=== PATIENT | female | born 1960 ===

== ENCOUNTER 2017-05-24 09:49 | Emergency (ER) | payer OTHER ==
[2017-05-24 09:59] VITALS: RESP 20
--- NOTE | 2017-05-24 12:01 | ED PDOC ---
HPI: General Adult Time Seen by Provider: 05/24/17 10:24 Chief Complaint (Nursing): Back Pain History Per: Patient Additional Complaint(s): Pt. states 2 weeks ago she was attempting to walk without her cane and when she stepped off a curb she fell backwards landing on the R side of her lower back and then flat on her back. She has been taking Naproxen without relief. Pt. states in December 2016 she had disc herniation repair done by Dr. Bean without complications. Pt. states she has been pain free since the surgery. Denies incontinence, abdominal pain, hip pain, head injury, numbness, tingling. Past Medical History Reviewed: Historical Data, Nursing Documentation, Vital Signs Vital Signs: Last Vital Signs Temp 98.6 F 05/24/17 09:58 Pulse 77 05/24/17 09:58 Resp 20 05/24/17 09:58 BP 157/91 H 05/24/17 09:58 Pulse Ox 100 05/24/17 13:08 - Medical History PMH: Diabetes, HTN, Hypercholesterolemia, Hypothyroidism - Surgical History Surgical History: Cholecystectomy - Family History Family History: States: Unknown Family Hx, Diabetes, Hypertension - Home Medications Home Medications: Ambulatory Orders Medication Instructions Recorded Aspirin [Ecotrin] 81 mg PO DAILY 01/13/17 Atorvastatin [Lipitor] 20 mg PO DAILY 01/13/17 Canagliflozin/Metformin HCl 1 tab PO BID 01/13/17 [Invokamet 150-1,000 mg Tablet] Cyanocobalamin [Vitamin B12] 500 mcg PO DAILY 01/13/17 Dulaglutide [Trulicity] 1.5 mg SQ MO 01/13/17 Ergocalciferol (Vitamin D2) 50,000 unit PO MO 01/13/17 [Vitamin D2] Glipizide [Glipizide ER] 5 mg PO DAILY 01/13/17 Levothyroxine [Synthroid] 150 mcg PO DAILY 01/13/17 Lisinopril [Zestril] 40 mg PO DAILY 01/13/17 Metoprolol Tartrate [Lopressor] 100 mg PO BID 01/13/17 Naproxen [Naprosyn] 500 mg PO DAILY PRN 01/13/17 Pioglitazone [Actos] 45 mg PO DAILY 01/13/17 Sennosides A and B [Senokot Tab] 17.2 mg PO HS tab 01/22/17 Tramadol HCl [Ultram] 50 mg PO BID PRN #10 tablet 05/24/17 - Allergies Allergies/Adverse Reactions: Allergies Allergy/AdvReac Type Severity Reaction Status Date / Time No Known Allergies Allergy Verified 01/13/17 06:59 Review of Systems ROS Statement: Except As Marked, All Systems Reviewed And Found Negative Musculoskeletal: Positive for: Back Pain Physical Exam - Physical Exam Appears: Positive for: Well, In Acute Distress (moderate painful distress) Head Exam: Positive for: ATRAUMATIC, NORMAL INSPECTION, NORMOCEPHALIC Skin: Positive for: Normal Color, Warm. Negative for: Rash Gastrointestinal/Abdominal: Positive for: Normal Exam, Soft. Negative for: Tenderness Back: Positive for: Normal Inspection, Vertebral Tenderness (coccygeal tenderness), Decreased ROM, Muscle Spasm (R sided paralumbar tenderness). Negative for: L CVA Tenderness, R CVA Tenderness Extremity: Positive for: Normal ROM Neurologic/Psych: Positive for: Alert, Oriented. Negative for: Aphasia, Facial Droop - Laboratory Results Urine dip results: Negative for: Leukocyte Esterase, Blood, Nitrate, Ketones, Glucose, Bilirubin, Protein - ECG O2 Sat by Pulse Oximetry: 100 - Progress ED Course And Treament: Toradol 15mg IM, valium 10mg PO given. LS spine CT w/o contrast: Nondisplaced fracture through the anterior posterior aspect of S5 vertebra. Postoperative changes at L4 and L5 as above. Disc bulge L4 and L5 with possible midline disc herniation L5. Pt. searched on [place] [employer] which indicate 1 narcotic Rx on 02/16/17 for Percocet. Pt. adamantly refuses Percocet Rx and would like a less strong pain medication. Ultram Rx will be prescribed. Pt. given donut pillpete. Case d/w Dr. Enriquez and Dr. Bean who both agree with plan. Dr. Bean requests that pt. f/u in his office. Re-evaluation Time: 13:03 Condition: Re-examined, Improved Disposition - Clinical Impression Clinical Impression: Sacral fracture - Patient ED Disposition Is Patient to be Admitted: No - Disposition Referrals: Papo Bean MD [Staff Provider] - Disposition: Routine/Home Disposition Time: 13:06 Condition: IMPROVED Prescriptions: Tramadol HCl [Ultram] 50 mg PO BID PRN #10 tablet PRN Reason: Other Instructions: Sacral Fracture (ED)
--- NOTE | 2017-05-24 12:19 | CT ---
PROCEDURE: CT Lumbar Spine without contrast HISTORY: s/p fall, hx of disc repair, please include coccyx COMPARISON: None. TECHNIQUE: Axial computed tomography images were obtained of the lumbar spine without the use of intravenous contrast. Coronal and sagittal reformatted images were created and reviewed. Radiation dose: Total exam DLP = 1618.89 mGy-cm. This CT exam was performed using one or more of the following dose reduction techniques: Automated exposure control, adjustment of the mA and/or kV according to patient size, and/or use of iterative reconstruction technique. FINDINGS: VERTEBRAE: There is a nondisplaced transverse fracture through the S5 vertebra in the midline extending to the left side, involving the anterior and posterior aspect of the neural foramen. This is best demonstrated on sagittal 34 through 36. There is no other fracture identified. . The vertebral bodies are maintained in height. The patient is status post right L4 hemilaminectomy possibly involving the inferior portion of the left L4 lamina as well as left L5 hemilaminectomy. DISCS/SPINAL CANAL/NEURAL FORAMINA: L1-2: Unremarkable. L2-3: Unremarkable. L3-4: Unremarkable. L4-5: Diffuse disc bulge. Disc/ridge complex. Hypertrophied left ligamentum flavum. Small vacuum disc phenomenon. L5-S1: Diffuse disc bulge. Possible small midline disc herniation. Calcification of herniated midline disc material. There is soft tissue density seen within the left L5 laminotomy defect, extending anteriorly adjacent to the bulged disc as well as posteriorly through the defect into the paraspinous soft tissues. Likely postoperative scar. PARASPINAL SOFT TISSUES: As above OTHER FINDINGS: None. IMPRESSION: Nondisplaced fracture through the anterior posterior aspect of S5 vertebra. Postoperative changes at L4 and L5 as above. Disc bulge L4 and L5 with possible midline disc herniation L5.
[2017-05-24 13:47] VITALS: BP 128/78; PULSE 78; TEMP 97.6; O2SAT 98
== END 2017-05-24 13:47 | disposition home or self-care (01) ==
LOC: H.ER 09:49
DX: S32.009A Unspecified fracture of unspecified lumbar vertebra, initial encounter for closed fracture (principal); E11.9 Type 2 diabetes mellitus without complications; I10 Essential (primary) hypertension; Z79.82 Long term (current) use of aspirin

== ENCOUNTER 2017-07-12 10:13 | Emergency (ER) | payer OTHER ==
[2017-07-12] MEDS ORDERED: Piperacillin/Tazobact 3.375 GM in Sodium Chloride 0.9% 100 ML IV STA (11:04)
--- NOTE | 2017-07-12 11:07 | ED PDOC ---
HPI: Back Time Seen by Provider: 07/12/17 10:20 Chief Complaint (Nursing): Back Pain Chief Complaint (Provider): Back Pain History Per: Patient Additional Complaint(s): 57 yo female, PMH of DM. HTN, high Cholesterol, Hypothyroidism, presents to ED for evaluation of painful, red, swollen, progressively worsening mass to mid back x 1 week now. Pt reports similar episode occurred 2 years ago, in the same spot, and I&D was done. Past Medical History Reviewed: Nursing Documentation, Vital Signs - Medical History PMH: Diabetes, HTN, Hypercholesterolemia, Hypothyroidism - Surgical History Surgical History: Cholecystectomy - Family History Family History: States: Unknown Family Hx, Diabetes, Hypertension - Living Arrangements Living Arrangements: With Family - Social History Current smoker - smoking cessation education provided: No Alcohol: None Drugs: Denies - Home Medications Home Medications: Ambulatory Orders Medication Instructions Recorded Aspirin [Ecotrin] 81 mg PO DAILY 01/13/17 Atorvastatin [Lipitor] 20 mg PO DAILY 01/13/17 Canagliflozin/Metformin HCl 1 tab PO BID 01/13/17 [Invokamet 150-1,000 mg Tablet] Cyanocobalamin [Vitamin B12] 500 mcg PO DAILY 01/13/17 Dulaglutide [Trulicity] 1.5 mg SQ MO 01/13/17 Ergocalciferol (Vitamin D2) 50,000 unit PO MO 01/13/17 [Vitamin D2] Glipizide [Glipizide ER] 5 mg PO DAILY 01/13/17 Levothyroxine [Synthroid] 150 mcg PO DAILY 01/13/17 Lisinopril [Zestril] 40 mg PO DAILY 01/13/17 Metoprolol Tartrate [Lopressor] 100 mg PO BID 01/13/17 Naproxen [Naprosyn] 500 mg PO DAILY PRN 01/13/17 Pioglitazone [Actos] 45 mg PO DAILY 01/13/17 Sennosides A and B [Senokot Tab] 17.2 mg PO HS tab 01/22/17 Tramadol HCl [Ultram] 50 mg PO BID PRN #10 tablet 05/24/17 Clindamycin [Cleocin] 300 mg PO BID #14 cap 07/12/17 Ibuprofen [Motrin] 600 mg PO Q6 #20 tab 07/12/17 oxyCODONE/Acetaminophen [Percocet 1 ea PO Q6 PRN #5 tab 07/12/17 5/325 mg Tab] - Allergies Allergies/Adverse Reactions: Allergies Allergy/AdvReac Type Severity Reaction Status Date / Time No Known Allergies Allergy Verified 01/13/17 06:59 Review of Systems ROS Statement: Except As Marked, All Systems Reviewed And Found Negative Skin: Positive for: Lesions Physical Exam - Reviewed Nursing Documentation Reviewed: Yes Vital Signs Reviewed: Yes - Physical Exam Appears: Positive for: Non-toxic, No Acute Distress, Uncomfortable Head Exam: Positive for: ATRAUMATIC, NORMAL INSPECTION, NORMOCEPHALIC Skin: Positive for: Normal Color, Warm, DRY Eye Exam: Positive for: EOMI, Normal appearance, PERRL ENT: Positive for: Normal ENT Inspection Neck: Positive for: Normal, Painless ROM Cardiovascular/Chest: Positive for: Regular Rate, Rhythm Respiratory: Positive for: CNT, Normal Breath Sounds Gastrointestinal/Abdominal: Positive for: Normal Exam, Bowel Sounds, Soft Back: Positive for: Normal Inspection Extremity: Positive for: Normal ROM Neurologic/Psych: Positive for: Alert, Oriented Comments: (+) tender, erythemtous, non fluctuant, iundurated mass to mid back ~ 10 cm in diameter - Laboratory Results Result Diagrams: 07/12/17 11:23 07/12/17 11:23 Medical Decision Making Medical Decision Making: IV access established and treatment initiated with Vanco, Zosyn and Morphine Diagnostics ordered including US to assess for fluid collection WBC 9.3 US IMPRESSION: Complex primarily solid mass subcutaneous location. More superficial cutaneous and subcutaneous edema. No drainable component of what is likely infectious/ inflammatory process. Pt educated on all results and demonstrated full understanding. Large blackhead removed by physician underwriter and foul smelling sebum drained as well. Site cleaned and dressed by physician underwriter Pt stable for discharge, advised to continue on oral antibitoics as directed. Warm compresses as well. wound check in 2 days. pt scheduled with [facility] as well. Disposition - Clinical Impression Clinical Impression: Sebaceous cyst - Patient ED Disposition Is Patient to be Admitted: No - Disposition Referrals: Juwan Beckett [Outside] Disposition: Routine/Home Disposition Time: 13:09 Condition: STABLE Prescriptions: Clindamycin [Cleocin] 300 mg PO BID #14 cap Ibuprofen [Motrin] 600 mg PO Q6 #20 tab oxyCODONE/Acetaminophen [Percocet 5/325 mg Tab] 1 ea PO Q6 PRN #5 tab PRN Reason: Pain, Severe (8-10) Instructions: Cyst (ED) Forms: [facility] (Icelandic)
[2017-07-12] MEDS ORDERED: Vancomycin 1 g Inj ONE (11:12)
[2017-07-12] MEDS ORDERED: Oxycodone/Acetaminophen 5/325 mg Tab PO STA ×2 (11:22→13:12)
[2017-07-12] MEDS ORDERED: Piperacillin/Tazobact 3.375 gm Inj IVPB ONE ×2 (11:30→13:24)
[2017-07-12 11:33] LABS: BASO # 0.1 K/uL (0.0-0.2); BASO % 0.5 % (0.0-2.0); EOS # 0.3 K/uL (0.0-0.7); EOS % 3.4 % (0.0-4.0); HEMOGLOBIN 13.2 g/dL (12.0-16.0); LYMPH # 1.3 K/uL (1.0-4.3); LYMPH % 14.1 % (20.0-40.0); MEAN CELL VOLUME 94.5 fl (81.0-99.0); MEAN CORPUSCULAR HEMOGLOBIN 31.8 pg (27.0-31.0); MEAN CORPUSCULAR HGB CONC 33.6 g/dL (33.0-37.0); MEAN PLATELET VOLUME 9.9 fl (7.2-11.7); MONO # 0.8 K/uL (0.0-0.8); MONO % 8.3 % (0.0-10.0); NEUT # 6.9 K/uL (1.8-7.0); NEUT % 73.7 % (50.0-75.0); RBC 4.14 Mil/uL (3.80-5.20); RED CELL DISTRIBUTION WIDTH 12.9 % (11.5-14.5); WHITE BLOOD COUNT 9.3 K/uL (4.8-10.8)
[2017-07-12 11:42] LABS: ALB/GLOB RATIO 1.1 (1.0-2.1); ALBUMIN 3.9 g/dL (3.5-5.0); ALT/SGPT 48 U/L (9-52); AST/SGOT 29 U/L (14-36); BLOOD UREA NITROGEN 18 mg/dl (7-17); GFR AFRICAN-AMERICAN > 60; GFR NON-AFRICAN AMERICAN > 60
--- NOTE | 2017-07-12 12:37 | US ---
PROCEDURE: Limited ultrasound attention right upper back HISTORY: . History of pain, swelling and redness 1 week duration. No antecedent history of trauma provided. COMPARISON: None. TECHNIQUE: Standard protocol for this study/examination. FINDINGS: Solid mass/complex fluid collection 2.1 x 3.1 by 3.2 cm. No drainable component. Associated cutaneous and subcutaneous edema. IMPRESSION: Complex primarily solid mass subcutaneous location. More superficial cutaneous and subcutaneous edema. No drainable component of what is likely infectious/inflammatory process.
[2017-07-12] MEDS ORDERED: Lidocaine 1% Inj (20ml) ONE (12:44)
[2017-07-12] MEDS ORDERED: Oxycodone/Acetaminophen 5/325 mg Tab ONE (12:52)
== END 2017-07-12 15:30 | disposition home or self-care (01) ==
LOC: H.ER 10:13
DX: L72.3 Sebaceous cyst (principal); I10 Essential (primary) hypertension; E03.9 Hypothyroidism, unspecified; E78.00 Pure hypercholesterolemia, unspecified; E11.9 Type 2 diabetes mellitus without complications

== ENCOUNTER 2017-08-03 12:49 | Inpatient (IN) | payer OTHER ==
--- NOTE | 2017-08-03 13:12 | ED PDOC ---
Arrival/HPI - General Chief Complaint: Weakness/Neurological Deficit Time Seen by Provider: 08/03/17 12:58 - History of Present Illness Narrative History of Present Illness (Text): Eileen Florian is a 57 year old female, with a past medical history of hypertension and diabetes, who presents to the emergency department complaining of double vision on the right eye associated with a headache onset for 1 week. 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 Patient denies any trauma, chest pain, neck pain, nausea, vomit, shortness of breath, and abdominal pain. No further medical complaints. PMD: Dr. Zoe Roberts: Dr. Marr Past Medical History - Provider Review Nursing Documentation Reviewed: Yes - Cardiac Hx Hypertension: Yes - Pulmonary Hx Respiratory Disorders: No - Neurological Hx Neurological Disorder: No - HEENT Hx HEENT Disorder: No - Endocrine/Metabolic Hx Hypothyroidism: Yes - Hematological/Oncological Hx Blood Disorders: No - Integumentary Hx Dermatological Disorder: No - Musculoskeletal/Rheumatological Hx Falls: No Hx Herniated Disk: Yes (herniated disc repair >20 yrs) - Psychiatric Hx Substance Use: No - Surgical History Hx Cholecystectomy: Yes - Anesthesia Hx Anesthesia: Yes Hx Anesthesia Reactions: No Hx Malignant Hyperthermia: No Family/Social History - Physician Review Nursing Documentation Reviewed: Yes Family/Social History: Unknown Family HX Smoking Status: Never Smoked Hx Alcohol Use: No Hx Substance Use: No Allergies/Home Meds Allergies/Adverse Reactions: Allergies No Known Allergies Allergy (Verified 08/03/17 12:58) Home Medications: Home Meds Medication Instructions Recorded Confirmed Aspirin [Ecotrin] 81 mg PO DAILY 08/03/17 08/03/17 Atorvastatin [Lipitor] 20 mg PO DAILY 08/03/17 08/03/17 Canagliflozin/Metformin HCl 1 tab PO BID 08/03/17 08/03/17 [Invokamet 150-1,000 mg Tablet] Cyanocobalamin [Vitamin B12] 500 mcg PO DAILY 08/03/17 08/03/17 Ergocalciferol (Vitamin D2) 50,000 unit PO MO 08/03/17 08/03/17 [Vitamin D2] Glipizide [Glipizide ER] 5 mg PO DAILY 08/03/17 08/03/17 Levothyroxine [Synthroid] 150 mcg PO DAILY 08/03/17 08/03/17 Lisinopril [Zestril] 40 mg PO DAILY 08/03/17 08/03/17 Metoprolol Tartrate [Lopressor] 100 mg PO Q12H 08/03/17 08/03/17 [place]-3 Fatty Acids/Fish Oil 1,000 mg PO BID 08/03/17 08/03/17 [[place]-3 1,000 mg Softgel] Review of Systems - Patients Enrolled in [employer] [X]: A conversation was conducted with the primary medical doctor. - Review of Systems Constitutional: Normal Eyes: Other (double vision on the right eye) ENT: Normal Respiratory: Normal. absent: SOB Cardiovascular: Normal. absent: Chest Pain Gastrointestinal: Normal. absent: Abdominal Pain, Nausea, Vomiting Genitourinary Female: Normal Musculoskeletal: Normal. absent: Neck Pain Skin: Normal Neurological: Headache Psychiatric: Normal Physical Exam Vital Signs Reviewed: Yes Vital Signs Temp Pulse Resp BP Pulse Ox 08/03/17 14:43 79 20 176/100 H 08/03/17 14:11 78 19 183/97 H 98 08/03/17 13:32 97.5 F L 83 19 170/100 H 98 08/03/17 13:11 99 H 19 188/105 H 99 08/03/17 12:58 98 F 99 H 18 204/107 H 98 Temperature: Afebrile Blood Pressure: Hypertensive Pulse: Regular Respiratory Rate: Normal Appearance: Positive for: Well-Appearing, Non-Toxic, Comfortable Pain Distress: None Mental Status: Positive for: Alert and Oriented X 3 - Systems Exam Head: Present: Atraumatic, Normocephalic Pupils: Present: PERRL, Other (Dilated eyes. Left eye within normal limits, right eye two fingers appear as 4) Extroacular Muscles: Present: EOMI Conjunctiva: Present: Normal Mouth: Present: Moist Mucous Membranes Pharnyx: Present: Normal Neck: Present: Normal Range of Motion Respiratory/Chest: Present: Clear to Auscultation, Good Air Exchange. No: Respiratory Distress, Accessory Muscle Use Cardiovascular: Present: Regular Rate and Rhythm, Normal S1, S2. No: Murmurs Abdomen: Present: Normal Bowel Sounds. No: Tenderness, Distention, Peritoneal Signs Upper Extremity: Present: Normal Inspection. No: Cyanosis, Edema Lower Extremity: Present: Normal Inspection. No: Edema Neurological: Present: GCS=15, CN II-XII Intact, Speech Normal Skin: Present: Warm, Dry, Normal Color. No: Rashes Psychiatric: Present: Alert, Oriented x 3, Normal Insight, Normal Concentration Medical Decision Making ED Course and Treatment: 08/03/17 13:38 Initial Impression: 57 y/o female with double vision on right eye concerning for mass vs. cva. Hypertensive on arrival. Initial Plan: --Type and screen --Head w/o contrast [CT] --EKG --Comp Metabolic Panel --Hemoglobin A1C --Lipid Panel --Troponin I --CBC w/ differential --PTT --PT --Chest Portable [RAD] --reevaluation Scribe Attestation: Documented by Marcos Donahue, acting as a scribe for Randa Gonsales MD. Provider Scribe Attestation: All medical record entries made by the Scribe were at my direction and personally dictated by me. I have reviewed the chart and agree that the record accurately reflects my personal performance of the history, physical exam, medical decision making, and the department course for this patient. I have also personally directed, reviewed, and agree with the discharge instructions and disposition. 08/03/17 13:50 EKG shows NSR at 83bpm with t wave inversions/flattening in v3-v6, new from prior ekg 08/03/17 14:17 CT shows No acute intracranial abnormality. If there is a persistent focal neurologic deficit and an ongoing clinical concern for acute infarction, an MRI of the brain without intravenous contrast would be a more sensitive modality for evaluation of hyperacute/acute ischemic infarction. Labetalol ordered for elevated BP. Aspirin ordered after CT head negative for hemorrhage. 08/03/17 14:18 Trop x 1 negative 08/03/17 14:40 Chest X-ray HISTORY: double vision COMPARISON: 01/20/2017. FINDINGS: LUNGS: The lungs are well inflated and clear. PLEURA: No significant pleural effusion identified, no pneumothorax apparent. CARDIOVASCULAR: Normal. OSSEOUS STRUCTURES: No significant abnormalities. VISUALIZED UPPER ABDOMEN: Normal. OTHER FINDINGS: None. IMPRESSION: No active pulmonary disease. 08/03/17 15:[address] Enriquez and patient to be admitted for hypertensive urgency with ekg changes and headache with neurologic changes concerning for cva. - Lab Interpretations Lab Results: 08/03/17 13:34 08/03/17 13:34 Lab Results 08/03/17 13:34: PT 10.4, INR 1.0, APTT 33.8 08/03/17 13:34: Sodium 139, Potassium 3.4 L, Chloride 103, Carbon Dioxide 26, Anion Gap 13, BUN 17, Creatinine 0.7, Est GFR ( Amer) > 60, Est GFR (Non- Af Amer) > 60, Random Glucose 225 H, Calcium 9.5, Total Bilirubin 1.5 H, AST 28 , ALT 29, Alkaline Phosphatase 116, Troponin I < 0.0120, Total Protein 7.5, Albumin 4.2, Globulin 3.3, Albumin/Globulin Ratio 1.3, Triglycerides 143, Cholesterol 232 H, LDL Cholesterol Direct 137 H, HDL Cholesterol 50 08/03/17 13:34: WBC 5.6, RBC 4.79, Hgb 15.0, Hct 45.8, MCV 95.6, MCH 31.2 H, MCHC 32.6 L, RDW 13.3, Plt Count 172, MPV 10.5, Neut % (Auto) 70.6, Lymph % ( Auto) 18.5 L, [place] % (Auto) 5.3, Eos % (Auto) 5.0 H, Baso % (Auto) 0.6, Neut # 3.9, Lymph # 1.0, [place] # 0.3, Eos # 0.3, Baso # 0.0 08/03/17 13:28: Blood Type AB POSITIVE, Antibody Screen Negative, BBK History Checked No verified bt - RAD Interpretation Radiology Orders: 08/03/17 13:12 CHEST PORTABLE [RAD] Stat 08/03/17 13:13 HEAD W/O CONTRAST [CT] Stat - Medication Orders Current Medication Orders: Discontinued Medications Aspirin (Aspirin Chewable) 324 mg PO STAT STA Stop: 08/03/17 14:18 Last Admin: 08/03/17 14:42 Dose: 324 mg Aspirin (Aspirin Chewable) Confirm Administered Dose 324 mg .ROUTE .STK-MED ONE Stop: 08/03/17 14:41 Labetalol HCl (Trandate) 20 mg IVP STAT STA Stop: 08/03/17 14:17 Last Admin: 08/03/17 15:03 Dose: 20 mg Disposition/Present on Arrival - Present on Arrival Any Indicators Present on Arrival: No History of DVT/PE: No History of Uncontrolled Diabetes: No Urinary Catheter: No - Disposition Have Diagnosis and Disposition been Completed?: Yes Diagnosis: Double vision, Hypertension Disposition: HOSPITALIZED Disposition Time: 13:32 Patient Plan: Admission Condition: FAIR
[2017-08-03 13:49] LABS: BASO % 0.6 % (0.0-2.0); EOS # 0.3 K/uL (0.0-0.7); HEMATOCRIT 45.8 % (34.0-47.0); LYMPH % 18.5 % (20.0-40.0); MEAN CELL VOLUME 95.6 fl (81.0-99.0); MEAN CORPUSCULAR HEMOGLOBIN 31.2 pg (27.0-31.0); MEAN CORPUSCULAR HGB CONC 32.6 g/dL (33.0-37.0); MEAN PLATELET VOLUME 10.5 fl (7.2-11.7); MONO # 0.3 K/uL (0.0-0.8); MONO % 5.3 % (0.0-10.0); NEUT # 3.9 K/uL (1.8-7.0); NEUT % 70.6 % (50.0-75.0); NRBC % 0.1 % (0.0-0.0); RED CELL DISTRIBUTION WIDTH 13.3 % (11.5-14.5); WHITE BLOOD COUNT 5.6 K/uL (4.8-10.8)
[2017-08-03 14:00] LABS: ALB/GLOB RATIO 1.3 (1.0-2.1); ALKALINE PHOSPHATASE 116 U/L (38-126); ALT/SGPT 29 U/L (9-52); AST/SGOT 28 U/L (14-36); BILIRUBIN,TOTAL 1.5 mg/dl (0.2-1.3); BLOOD UREA NITROGEN 17 mg/dl (7-17); CALCIUM 9.5 mg/dL (8.4-10.2); CARBON DIOXIDE 26 mmol/L (22-30); CHLORIDE 103 mmol/L (98-107); CHOLESTEROL 232 mg/dL (0-199); GFR AFRICAN-AMERICAN > 60; GLUCOSE,RANDOM 225 mg/dL (65-105); POTASSIUM 3.4 MMOL/L (3.6-5.0); SODIUM 139 mmol/l (132-148); TOTAL PROTEIN 7.5 G/DL (6.3-8.2)
[2017-08-03 14:01] LABS: PARTIAL THROMBOPLASTIN TIME 33.8 Seconds (25.6-37.1)
[2017-08-03] MEDS ORDERED: Labetalol 5 mg/ml Inj 20ML IVP STA (14:16)
--- NOTE | 2017-08-03 14:17 | CT ---
PROCEDURE: CT HEAD WITHOUT CONTRAST. HISTORY: double vision, hypertensive COMPARISON: None available. TECHNIQUE: Axial computed tomography images were obtained through the head/brain without intravenous contrast. Radiation dose: Total exam DLP = 996.01 mGy-cm. This CT exam was performed using one or more of the following dose reduction techniques: Automated exposure control, adjustment of the mA and/or kV according to patient size, and/or use of iterative reconstruction technique. FINDINGS: HEMORRHAGE: No intracranial hemorrhage. BRAIN: [place]-white matter differentiation is preserved. There is no mass, mass effect or abnormal extra-axial fluid collection. VENTRICLES: There is mild age-related global parenchymal volume loss and proportionate enlargement of the ventricles and cortical sulci. CALVARIUM: The skull base and calvarium are normal. PARANASAL SINUSES: Predominantly clear. MASTOID AIR CELLS: Predominantly clear. OTHER FINDINGS: None. IMPRESSION: No acute intracranial abnormality. If there is a persistent focal neurologic deficit and an ongoing clinical concern for acute infarction, an MRI of the brain without intravenous contrast would be a more sensitive modality for evaluation of hyperacute/acute ischemic infarction.
--- NOTE | 2017-08-03 14:26 | RAD ---
HISTORY: double vision COMPARISON: 01/20/2017. FINDINGS: LUNGS: The lungs are well inflated and clear. PLEURA: No significant pleural effusion identified, no pneumothorax apparent. CARDIOVASCULAR: Normal. OSSEOUS STRUCTURES: No significant abnormalities. VISUALIZED UPPER ABDOMEN: Normal. OTHER FINDINGS: None. IMPRESSION: No active pulmonary disease.
--- NOTE | 2017-08-03 15:30 | CP.PCM.HP ---
History of Present Illness - History of Present Illness History of Present Illness: 57 year old female with pmh of htn, NIDDM presented to ED with complaints of headache for past one week, with right sided ptosis. She was seen by her opthomologist this morning, endorses evaluation was negative. She had her eyes dilated today and has blurry vision out of right eye. She is able to see well out of left eye. She denies hx of headaches. Endorses her BP and DM have been well controlled as of late, but DM was not controlled previously. Endorses some dizziness last week, not currently. She otherwise has no complaints of chest pain, nausea or vomiting. 12 point review of systems negative except as above. PMH: HTN, NIDDM, Hypothyroidism Medications: reviewed Allergies: NKDA Social: denies etoh, tobacco, illicit drugs. Present on Admission - Present on Admission Any Indicators Present on Admission: No Past Patient History - Past Medical History & Family History Past Medical History?: Yes - Past Social History Smoking Status: Never Smoked - CARDIAC Hx Hypertension: Yes - PULMONARY Hx Respiratory Disorders: No - NEUROLOGICAL Hx Neurological Disorder: No - HEENT Hx HEENT Problems: No - ENDOCRINE/METABOLIC Hx Hypothyroidism: Yes - HEMATOLOGICAL/ONCOLOGICAL Hx Blood Disorders: No - INTEGUMENTARY Hx Dermatological Problems: No - MUSCULOSKELETAL/RHEUMATOLOGICAL Hx Falls: No Hx Herniated Disk: Yes (herniated disc repair >20 yrs) - PSYCHIATRIC Hx Substance Use: No - SURGICAL HISTORY Hx Cholecystectomy: Yes - ANESTHESIA Hx Anesthesia: Yes Hx Anesthesia Reactions: No Hx Malignant Hyperthermia: No Meds Allergies/Adverse Reactions: Allergies Allergy/AdvReac Type Severity Reaction Status Date / Time No Known Allergies Allergy Verified 08/03/17 12:58 Physical Exam - Constitutional Appears: No Acute Distress - Head Exam Head Exam: NORMAL INSPECTION - Eye Exam Eye Exam: absent: Conjunctival injection Additional comments: ptosis of right eyelid, unable to open eye, left eye without abnormalities. - ENT Exam ENT Exam: Mucous Membranes Moist, Normal Exam - Respiratory Exam Respiratory Exam: Clear to Auscultation Bilateral, NORMAL BREATHING PATTERN. absent: Rales, Rhonchi, Wheezes, Respiratory Distress - Cardiovascular Exam Cardiovascular Exam: REGULAR RHYTHM, +S1, +S2. absent: Bradycardia, Tachycardia - GI/Abdominal Exam GI & Abdominal Exam: Bruit, Normal Bowel Sounds, Soft. absent: Tenderness - Rectal Exam Rectal Exam: Deferred - Neurological Exam Neurological exam: Alert, Normal Gait Additional comments: Notable for right sided ptosis, biploplia of right eye, left eye exam unremarkable. No aphasia, Normal speech fluency, normal comprehension. Strength of upper and lower extremities 5/5. No loss of sensation. Gait not assessed. - Psychiatric Exam Psychiatric exam: Normal Affect, Normal Mood Results - Vital Signs Recent Vital Signs: Last Vital Signs Temp 97.5 F L 08/03/17 13:32 Pulse 79 08/03/17 14:43 Resp 20 08/03/17 14:43 BP 176/100 H 08/03/17 14:43 Pulse Ox 98 08/03/17 14:11 - Labs Result Diagrams: 08/03/17 13:34 08/03/17 13:34 Assessment & Plan (1) Ptosis of eyelid, right Assessment and Plan: 57 year old female presents with right sided ptosis and diplopia. Patient was evaluated by Dr. Galo (Neurology) in ED. possibly 2' to stroke of third cranial nerve due to uncontrolled HTN and DM. Follow MRI brain without contrast -BP and Glycemic control -resume home medications -Dr. Winchester to eval and see patient Status: Acute (2) Monocular diplopia of right eye Status: Acute (3) Non-insulin dependent type 2 diabetes mellitus Assessment and Plan: follow Hga1c resume invokanamet and glipizide accuchecks achs and insulin sliding scale diabetic diet d/c atorvastatin 20mg start 80mg Status: Chronic (4) Hypertension Assessment and Plan: BP elevated, monitor -resume home medications Status: Acute (5) Hypothyroid Status: Acute (6) DVT prophylaxis Assessment and Plan: lovenox/scds Status: Acute
[2017-08-03] MEDS: Insulin Lispro (humaLOG) 100 Units/ml Inj SC SCH ×2 (16:38→21:54)
--- NOTE | 2017-08-03 16:38 | MRI ---
PROCEDURE: MRI BRAIN WITHOUT CONTRAST HISTORY: DOUBLE VISION COMPARISON: Noncontrast head CT performed the same day TECHNIQUE: Multiplanar, multisequence MR images of the brain were obtained without intravenous contrast enhancement. FINDINGS: HEMORRHAGE: None DWI: No evidence of an acute or early subacute infarction. BRAIN PARENCHYMA: There are few tiny T2/FLAIR hyperintense foci in the subcortical supratentorial white matter. There is no mass, mass effect or abnormal extra-axial fluid collection. There are low-lying cerebellar tonsils. VENTRICLES: There is mild global parenchymal volume loss and proportionate enlargement of the ventricles, cortical sulci and cerebellar folia. CRANIUM: There is normal bone marrow signal pattern. ORBITS: Grossly unremarkable. PARANASAL SINUSES/MASTOIDS: Predominantly clear. VASCULAR SYSTEM: There are normal signal voids in the larger intracranial arteries. There is absent signal void in the left jugular vein in the jugular fossa, jugular vein at the base of the skull and in the left transverse sinuses. There is also mild peripheral increased signal in the left sigmoid sinus. OTHER FINDINGS: None. IMPRESSION: 1. 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 Suspect partial thrombosis in the left sigmoid sinus. A dedicated MR venogram without and with intravenous contrast is recommended for further evaluation. 2. No acute intracranial abnormality. Mild scattered white matter changes are strictly nonspecific but statistically in this age group most compatible with mild chronic microangiopathic changes. 3. Mild age-related cerebral volume loss. Also noted is mild cerebellar volume loss.
[2017-08-03] MEDS ORDERED: FISH OIL PO SCH (17:00)
[2017-08-03] MEDS ORDERED: FATTY ACIDS PO SCH (17:00)
[2017-08-03] MEDS ORDERED: OMEGA PO SCH (17:00)
[2017-08-03] MEDS: Enoxaparin 80 mg Syringe SC SCH (21:51)
--- NOTE | 2017-08-03 22:16 | CON ---
NEUROLOGY CONSULTATION DATE: 08/03/2017 CHIEF COMPLAINT: Double vision of the right eye. HISTORY OF PRESENT ILLNESS: A 57-year-old woman with a history of hypertension, non-insulin dependent diabetes mellitus who came to the hospital for diffuse partial headache and right side ptosis and double vision of the right eye for the past week. She says that when she covers her left eye, she sees double out of her right eye and difficulty to open the right eyelid due to ptosis of the right eye. She has history of uncontrolled diabetes and hypertension. A CAT scan of the head showed no acute intracranial abnormality. 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 Otherwise, no acute intracranial abnormalities. No evidence of any acute infarct. She had a blood sugar of 225. She has elevated LDL of 137 and cholesterol of 232. Currently, on neuro exam, she does have evidence of right side ptosis and true right-sided double vision. PAST MEDICAL HISTORY: Diabetes, hypertension, dyslipidemia. FAMILY HISTORY: Noncontributory. SOCIAL HISTORY: No illicit drug use, smoking or ETOH abuse. REVIEW OF SYSTEMS: A 14-point review of system is negative except for the HPI. MEDICATIONS: Reviewed by nurse per reconciliation sheet. ALLERGIES: NO KNOWN DRUG ALLERGIES. PHYSICAL EXAMINATION GENERAL: The patient seen up in bed, in no acute distress. VITAL SIGNS: Temperature afebrile, pulse rate of 79, blood pressure 167/89, respiratory rate of 19, oxygen saturation 97% by room air. HEENT: Atraumatic, normocephalic. PERRLA. Extraocular muscles intact. NECK: Supple. No JVD. No adenopathy noted. LUNGS: Clear to auscultation. No adventitious sounds. HEART: S1 and S2, normal rate and rhythm. No murmur, rubs, or gallops. ABDOMEN: Soft, nontender, nondistended. Bowel sounds present. EXTREMITIES: No clubbing. No cyanosis. Peripheral pulses 2+ felt bilaterally. NEUROLOGIC: The patient is alert and oriented to person, place, month, and year. Speech is fluent without any errors. Cranial nerves II through XII are intact except for a right side eye ptosis and right side double vision. No facial asymmetry seen. Motor exam: Moves all extremities equally. No pronator drift seen. Sensory exam: Light touch pinprick, proprioception, and vibration is intact. Decreased light touch up to the calves bilaterally. DTRs are 2+ throughout and 1 at the ankles. Coordination of [id number] intact. Gait deferred for now. LABORATORY DATA: Sodium 139, potassium 3.4, chloride of 103, carbon dioxide 26, BUN of 17, creatinine 0.7, random glucose 225. ASSESSMENT: This is as 57-year-old woman with a history of hypertension, non-insulin dependent diabetes mellitus, dyslipidemia who presented with 1 week of diffuse partial headache, right side ptosis and right side double vision especially when covering her left eye. 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 Her headache is likely secondary to elevated systolic and diastolic blood pressures. Incidentally on MRI, there was found her to have concerning for left jugular vein thrombosis at the skull base and transverse sinus vein thrombosis and partial questionable left sigmoid sinus thrombosis. Therefore, I have ordered MR venogram stat and an MRA of the neck stat. Likely, her left jugular vein thrombosis and transverse sinus venous thrombosis could be secondary to hypercoagulable state. If so, we will get MR venogram as well as an MRA of the neck to assess for any sinus venous thrombosis, which could also be partly causing her symptoms, but overall, she has a diabetic right third nerve palsy. No evidence of any acute infarct. RECOMMENDATIONS: 1. Keep blood sugars between 140 to 180, get hemoglobin A1c. Advise a diabetic diet. 2. Keep blood pressure between 130 to 140 mmHg. 3. Atorvastatin 80 mg for dyslipidemia to get LDL below 100, given that she is diabetic. 4. Start her on therapy getting therapeutic Lovenox given the MRI brain findings and until the MRV, we will rule out sinus venous thrombosis. 5. Recommend hypercoagulable workup as per primary team. Factor V Leiden, protein C and S, antiphospholipid antibody, prothrombin gene, antithrombin III, lupus anticoagulant and get hematology consult. At this time continue current present medical management. Thank you for this consult. Matthew Scott MD MTDRoney
[2017-08-03] MEDS: Docusate-Senna 50 mg-8.6 mg Tab PO SCH (22:46)
[2017-08-04] MEDS: Levothyroxine 150 MCG TAB PO SCH (05:51)
[2017-08-04 06:00] LABS: BASO % 0.6 % (0.0-2.0); EOS # 0.4 K/uL (0.0-0.7); EOS % 7.2 % (0.0-4.0); LYMPH % 31.2 % (20.0-40.0); MEAN CORPUSCULAR HEMOGLOBIN 31.1 pg (27.0-31.0); MEAN CORPUSCULAR HGB CONC 32.7 g/dL (33.0-37.0); MEAN PLATELET VOLUME 10.5 fl (7.2-11.7); MONO # 0.5 K/uL (0.0-0.8); MONO % 7.6 % (0.0-10.0); NEUT # 3.3 K/uL (1.8-7.0); NEUT % 53.4 % (50.0-75.0); NRBC % 0.1 % (0.0-0.0); RED CELL DISTRIBUTION WIDTH 13.5 % (11.5-14.5); WHITE BLOOD COUNT 6.3 K/uL (4.8-10.8)
[2017-08-04 06:07] LABS: BLOOD UREA NITROGEN 20 mg/dl (7-17); CALCIUM 9.2 mg/dL (8.4-10.2); CARBON DIOXIDE 27 mmol/L (22-30); CHLORIDE 106 mmol/L (98-107); GFR AFRICAN-AMERICAN > 60; GLUCOSE,RANDOM 136 mg/dL (65-105); POTASSIUM 3.5 MMOL/L (3.6-5.0); SODIUM 142 mmol/l (132-148)
[2017-08-04] MEDS: Insulin Lispro (humaLOG) 100 Units/ml Inj SC SCH ×4 (06:31→23:00)
--- NOTE | 2017-08-04 08:33 | CP.PCM.CON ---
History of Present Illness - History of Present Illness History of Present Illness: I was asked to see patient by Dr. Enriquez. Patient is a 57 year old female with PMH HTN who presents with drooping R eyelid. The patient developed headache for 3 days and was noted to have markedly elevated blood pressure. The patient presented to [facility] with an inability to raise her right eyelid. The patient was thpough to have suffered a stroke. She appears comfortable without dysarthria at present. Review of Systems - Constitutional Constitutional: absent: As Per HPI, Anorexia, Chills, Daytime Sleepiness, Excessive Sweating, Fatigue, Fever, Frequent Falls, Headache, Increased Appetite , Lethargy, Malaise, Night Sweats, Snoring, Sleep Apnea, Weight Gain, Weight Loss, Weakness, Other - EENT Eyes: Diplopia Ears: absent: As Per HPI, Decreased Hearing, Ear Discharge, Ear Pain, Tinnitus, Abnormal Hearing, Disequilibrium, Dizziness, Other Nose/Mouth/Throat: absent: As Per HPI, Epistaxis, Nasal Congestion, Nasal Discharge, Nasal Obstruction, Nasal Trauma, Nose Pain, Post Nasal Drip, Sinus Pain, Sinus Pressure, Bleeding Gums, Change in Voice, Dental Pain, Dry Mouth, Dysphagia, Halitosis, Hoarsness, Lip Swelling, Mouth Lesions, Mouth Pain, Odynophagia, Sore Throat, Throat Swelling, Tongue Swelling, Facial Pain, Neck Pain, Neck Mass, Other - Cardiovascular Cardiovascular: absent: As Per HPI, Acrocyanosis, Chest Pain, Chest Pain at Rest , Chest Pain with Activity, Claudication, Diaphoresis, Dyspnea, Dyspnea on Exertion, Edema, Irregular Heart Rhythm, Pain Radiating to Arm/Neck/Jaw, Leg Edema, Leg Ulcers, Lightheadedness, Orthopnea, Palpitations, Paroxysmal Nocturnal Dyspnea, Pedal Edema, Radiating Pain, Rapid Heart Rate, Slow Heart Rate, Syncope, Other - Respiratory Respiratory: absent: As Per HPI, Cough, Dyspnea, Hemoptysis, Dyspnea on Exertion , Wheezing, Snoring, Stridor, Pain on Inspiration, Chest Congestion, Excessive Mucous Production, Change in Mucous Color, Pain with Coughing, Other - Gastrointestinal Gastrointestinal: absent: As Per HPI, Abdominal Pain, Belching, Bloating, Change in Bowel Habits, Change in Stool Character, Coffee Ground Emesis, Constipation, Cramping, Diarrhea, Dyspepsia, Dysphagia, Early Satiety, Excessive Flatus, Fecal Incontinence, Heartburn, Hematemesis, Hematochezia, Loose Stools, Melena, Nausea, Odynophagia, Temesmus, Vomiting, Other - Genitourinary Genitourinary: absent: As Per HPI, Change in Urinary Stream, Difficulty Urinating, Dysuria, Flank Pain, Hematuria, Pyuria, Nocturia, Urinary Incontinence, Urinary Frequency, Urinary Hesitance, Urinary Urgency, Voiding Freq/Small Amts, Freq UTI, Hx Renal/Bladder Calculi, Hx /Renal Surgery, Bladder Distension, Other - Musculoskeletal Musculoskeletal: absent: As Per HPI, Abnormal Gait, Arthralgias, Atrophy, Back Pain, Deformity, Joint Swelling, Limited Range of Motion, Loss of Height, Muscle Cramps, Muscle Weakness, Myalgias, Neck Pain, Numbness, Radiating Pain into Limb, Stiffness, Tingling, Other - Integumentary Integumentary: absent: As Per HPI, Acne, Alopecia, Bleeding Lesions, Change in Hair, Change in Nails, Change in Pigmentation, Changing Lesions, Dry Skin, Erythema, Furuncle, Hirsutism, Lesions, New Lesions, Non-Healing Lesions, Photosensitivity, Pruritus, Rash, Skin Pain, Skin Ulcer, Sores, Striae, Swelling , Unusual Bruising, Wounds, Jaundice, Other - Neurological Neurological: Headaches, Other Visual Disturbances - Psychiatric Psychiatric: absent: As Per HPI, Abnormal Sleep Pattern, Anhedonia, Anxiety, Auditory Hallucinations, Behavioral Changes, Change in Appetite, Change in Libido, Confusion, Depression, Difficulty Concentrating, Hallucinations, Homicidal Ideation, Hopelessness, Irritability, Memory Loss, Mood Swings, Panic Attacks, Paranoia, Suicidal Ideation, Visual Hallucinations, Tactile Hallucinations, Other - Endocrine Endocrine: absent: As Per HPI, Change in Body Appearance, Change in Libido, Cold Intolorance, Deepening of Voice, Excessive Sweating, Fatigue, Flushing, Heat Intolorance, Increase in Ring/Shoe/Hat Size, Palpitations, Polydipsia, Polyphagia, Polyuria, Other - Hematologic/Lymphatic Hematologic: absent: As Per HPI, Easy Bleeding, Easy Bruising, Lymphadenopathy, Other Past Patient History - Past Medical History & Family History Past Medical History?: Yes - Past Social History Smoking Status: Never Smoked - CARDIAC Hx Cardiac Disorders: Yes Hx Hypertension: Yes - PULMONARY Hx Respiratory Disorders: No - NEUROLOGICAL Hx Neurological Disorder: No - HEENT Hx HEENT Problems: No - RENAL Hx Chronic Kidney Disease: No - ENDOCRINE/METABOLIC Hx Endocrine Disorders: Yes Hx Hypothyroidism: Yes - HEMATOLOGICAL/ONCOLOGICAL Hx Blood Disorders: No Hx AIDS: No Hx Human Immunodeficiency Virus (HIV): No - INTEGUMENTARY Hx Dermatological Problems: No - MUSCULOSKELETAL/RHEUMATOLOGICAL Hx Musculoskeletal Disorders: Yes Hx Falls: No Hx Herniated Disk: Yes (lumbar laminectomy 2017) - GASTROINTESTINAL Hx Gastrointestinal Disorders: No - GENITOURINARY/GYNECOLOGICAL Hx Genitourinary Disorders: No - PSYCHIATRIC Hx Psychophysiologic Disorder: No Hx Substance Use: No - SURGICAL HISTORY Hx Surgeries: Yes Hx Cholecystectomy: Yes Other/Comment: Laminectomy in 2017 - ANESTHESIA Hx Anesthesia: Yes Hx Anesthesia Reactions: No Hx Malignant Hyperthermia: No Has any member of the family had a problem w/ anesthesia?: No Meds Allergies/Adverse Reactions: Allergies Allergy/AdvReac Type Severity Reaction Status Date / Time No Known Allergies Allergy Verified 08/03/17 12:58 - Medications Medications: Current Medications Acetaminophen (Tylenol 325mg Tab) 650 mg PO Q6 PRN PRN Reason: Pain, Mild (1-3) Amlodipine Besylate (Norvasc) 5 mg PO DAILY [facility] Aspirin (Ecotrin) 81 mg PO DAILY [facility] Atorvastatin Calcium (Lipitor) 80 mg PO DAILY [facility] Cyanocobalamin (Vitamin B12) 500 mcg PO DAILY [facility] Enoxaparin Sodium (Lovenox) 80 mg SC Q12 [facility] PRN Reason: Protocol Last Admin: 08/03/17 21:51 Dose: 80 mg Ergocalciferol (Drisdol 50,000 Intl Units Cap) 1 cap PO MO [facility] Glipizide (Glucotrol Xl) 5 mg PO DAILY [facility] Home Med (Canagliflozin/Metformin Hcl [Invokamet 150-1,000 Mg Tablet]) 1 tab PO BID [facility] Insulin Human Lispro (Humalog) 0 units SC ACHS [facility] PRN Reason: Protocol Last Admin: 08/04/17 06:31 Dose: Not Given Levothyroxine Sodium (Synthroid) 150 mcg PO DAILY@0630 [facility] Last Admin: 08/04/17 05:51 Dose: 150 mcg Lisinopril (Zestril) 40 mg PO DAILY [facility] Metoprolol Tartrate (Lopressor) 100 mg PO Q12H [facility] Last Admin: 08/04/17 05:00 Dose: 100 mg Morphine Sulfate (Morphine) 2 mg IVP Q6 PRN PRN Reason: Pain, severe (8-10) Morphine Sulfate (Morphine) 1 mg IVP Q6 PRN PRN Reason: Pain, moderate (4-7) Flivx-6-Mtai Ethyl Esters (Lovaza) 1 gm PO BID [facility] Senna/Docusate Sodium (Senokot S 50 Mg-8.6 Mg) 2 tab PO HS [facility] Last Admin: 08/03/17 22:46 Dose: 2 tab Physical Exam - Constitutional Appears: Non-toxic - Head Exam Head Exam: NORMAL INSPECTION - Eye Exam Eye Exam: Periorbital swelling Additional comments: r eyelid ptosis - ENT Exam ENT Exam: Mucous Membranes Moist - Neck Exam Neck exam: Positive for: Full Rom - Respiratory Exam Respiratory Exam: NORMAL BREATHING PATTERN - Cardiovascular Exam Cardiovascular Exam: REGULAR RHYTHM - GI/Abdominal Exam GI & Abdominal Exam: Normal Bowel Sounds - Rectal Exam Rectal Exam: Deferred - Extremities Exam Extremities exam: Negative for: tenderness - Neurological Exam Neurological exam: Alert, Oriented x3 - Psychiatric Exam Psychiatric exam: Normal Mood - Skin Skin Exam: Intact Results - Vital Signs Recent Vital Signs: Last Vital Signs Temp 97.9 F 08/04/17 08:00 Pulse 67 08/04/17 08:00 Resp 18 08/04/17 08:00 BP 174/97 H 08/04/17 08:00 Pulse Ox 99 08/04/17 08:00 - Labs Result Diagrams: 08/04/17 05:20 08/04/17 05:20 Labs: Laboratory Results - last 24 hr 08/03/17 08/03/17 08/04/17 16:28 21:54 05:20 WBC RBC Hgb Hct MCV MCH MCHC RDW Plt Count MPV Neut % (Auto) Lymph % (Auto) [place] % (Auto) Eos % (Auto) Baso % (Auto) Neut # Lymph # [place] # Eos # Baso # Sodium 142 Potassium 3.5 L Chloride 106 Carbon Dioxide 27 Anion Gap 13 BUN 20 H Creatinine 0.7 Est GFR ( Amer) > 60 Est GFR (Non-Af Amer) > 60 POC Glucose (mg/dL) 148 H 184 H Random Glucose 136 H Calcium 9.2 08/04/17 08/04/17 05:20 05:26 WBC 6.3 RBC 4.42 Hgb 13.7 Hct 42.0 MCV 95.0 MCH 31.1 H MCHC 32.7 L RDW 13.5 Plt Count 160 MPV 10.5 Neut % (Auto) 53.4 Lymph % (Auto) 31.2 [place] % (Auto) 7.6 Eos % (Auto) 7.2 H Baso % (Auto) 0.6 Neut # 3.3 Lymph # 2.0 [place] # 0.5 Eos # 0.4 Baso # 0.0 Sodium Potassium Chloride Carbon Dioxide Anion Gap BUN Creatinine Est GFR ( Amer) Est GFR (Non-Af Amer) POC Glucose (mg/dL) 117 H Random Glucose Calcium Assessment & Plan (1) Hypertension Assessment and Plan: will manage bloo dpressure. echocardiogram to evaluate for diastolic dysfunction. Status: Acute (2) Ptosis of eyelid, right Assessment and Plan: neuro eval Status: Acute (3) Non-insulin dependent type 2 diabetes mellitus Assessment and Plan: risk factor for CVA Status: Chronic
[2017-08-04] MEDS: GlipiZIDE 5 mg SR Tab PO SCH (08:44)
[2017-08-04] MEDS: CYANOCOBALAMIN 500 MCG TAB PO SCH (08:45)
[2017-08-04] MEDS: Omega-3-Acid Ethyl Esters 1 GM Cap PO SCH ×2 (08:45→17:36)
[2017-08-04] MEDS: Enoxaparin 80 mg Syringe SC SCH ×2 (08:45→22:00)
[2017-08-04] MEDS ORDERED: Enoxaparin 40 mg Syringe SC SCH (09:00)
[2017-08-04] MEDS ORDERED: Sodium Chloride 0.9% 0 ML IV ONE (09:09)
[2017-08-04] MEDS ORDERED: Gadodiamide 287 MG/ML VIAL (15ML) IV ONE ×2 (09:09→13:34)
--- NOTE | 2017-08-04 10:57 | MRI ---
PROCEDURE: Magnetic Resonance Angiography Brain HISTORY: double vision. COMPARISON: None available. TECHNIQUE: 3D time of flight MR angiography of the intracranial arteries was performed. Rotating maximum intensity projection images were generated. FINDINGS: INTERNAL CEREBRAL ARTERIES: Normal in caliber and widely patent. The skull base, petrous, cavernous and supraclinoid segments are bilaterally widely patient. ANTERIOR CEREBRAL ARTERIES: Normal in caliber and widely patent. The right A1 segment is aplastic, an anatomic variant. The left A1 and A2 segments are widely patent. Smaller distal branches unremarkable, as visualized. MIDDLE CEREBRAL ARTERIES: Normal in caliber and widely patent. M1 and M2 segments are widely patent. Perisylvian branches grossly symmetric. POSTERIOR CIRCULATION: Basilar Artery: Normal. Distal Vertebral Arteries: The right vertebral artery is hypoplastic, an anatomic variant. The left vertebral artery is dominant intracranially. Posterior Cerebral Arteries: There is origin of bilateral posterior cerebral arteries. Posterior Inferior Cerebellar Arteries: Normal. ANEURYSM/ VASCULAR MALFORMATIONS: None. OTHER FINDINGS: None. IMPRESSION: 1. No evidence of occlusion, definite significant stenosis or saccular aneurysm. 2. Aplastic right A1 segment, hypoplastic right vertebral artery and origin of bilateral posterior cerebral arteries, anatomic variants.
[2017-08-04] MEDS ORDERED: Metoprolol 1 mg/ml Inj IVP ONE (11:00)
--- NOTE | 2017-08-04 11:14 | CP.PCM.PN ---
Subjective - Date & Time of Evaluation Date of Evaluation: 08/04/17 Time of Evaluation: 11:12 - Subjective Subjective: No acute overnight events. Patient seen and examined bedside. Continues to have severe headache, diploplia and ptosis. Has some nausea. BP checked during examination : 184/91. Lopressor ordered. Will need medications adjusted given intermittent increases in BP. Complaints of constipation. Will give glycerin suppository. Patient unable to complete MRA/MRV due to dizziness. Will give Meclizine. Echo ordered. Dr. Scott and Dr. Winchester are following, recommendations appreciated. Will get Hematology consult, Dr. Robert. Objective - Vital Signs/Intake and Output Vital Signs (last 24 hours): Temp Pulse Resp BP Pulse Ox 97.9 F 67 18 174/97 H 99 08/04/17 08:00 08/04/17 08:46 08/04/17 08:00 08/04/17 08:46 08/04/17 08:00 - Medications Medications: Current Medications Acetaminophen (Tylenol 325mg Tab) 650 mg PO Q6 PRN PRN Reason: Pain, Mild (1-3) Amlodipine Besylate (Norvasc) 5 mg PO DAILY [facility]S AT [facility] Last Admin: 08/04/17 08:44 Dose: 5 mg Aspirin (Ecotrin) 81 mg PO DAILY [facility]S [facility]CLUDE 234 BEDS AT [facility] Last Admin: 08/04/17 08:43 Dose: 81 mg Atorvastatin Calcium (Lipitor) 80 mg PO DAILY [facility]S [facility]CLUDE 234 BEDS AT [facility] Last Admin: 08/04/17 08:44 Dose: 80 mg Cyanocobalamin (Vitamin B12) 500 mcg PO DAILY [facility] 234 BEDS AT [facility] Last Admin: 08/04/17 08:45 Dose: 500 mcg Docusate Sodium (Colace) 100 mg PO BID [facility]S [facility]CLUDE 234 BEDS AT [facility] Enoxaparin Sodium (Lovenox) 80 mg SC Q12 [facility] PRN Reason: Protocol Last Admin: 08/04/17 08:45 Dose: 80 mg Ergocalciferol (Drisdol 50,000 Intl Units Cap) 1 cap PO MO [facility] 234 BEDS AT [facility] Glipizide (Glucotrol Xl) 5 mg PO DAILY [facility]CLUDE 234 BEDS AT [facility] Last Admin: 08/04/17 08:44 Dose: 5 mg Home Med (Canagliflozin/Metformin Hcl [Invokamet 150-1,000 Mg Tablet]) 1 tab PO BID [facility] 234 BEDS AT [facility] Sodium Chloride (Sodium Chloride 0.45%) 1,000 mls @ 80 mls/hr IV .[id number] COUNTS [facility]CLUDE 234 BEDS AT [facility] Stop: 08/05/17 10:22 Insulin Human Lispro (Humalog) 0 units SC ACHS [facility]S [facility]CLUDE 234 BEDS AT [facility] PRN Reason: Protocol Last Admin: 08/04/17 06:31 Dose: Not Given Lactulose (Enulose) 30 gm PO DAILY PRN PRN Reason: Constipation Levothyroxine Sodium (Synthroid) 150 mcg PO DAILY@0630 [facility]CLUDE 234 BEDS AT [facility] Last Admin: 08/04/17 05:51 Dose: 150 mcg Lisinopril (Zestril) 40 mg PO DAILY [facility]CLUDE 234 BEDS AT [facility] Last Admin: 08/04/17 08:46 Dose: 40 mg Meclizine HCl (Antivert) 12.5 mg PO BID [facility]S [facility]CLUDE 234 BEDS AT [facility] Metoprolol Tartrate (Lopressor) 100 mg PO Q12H [facility]S [facility]CLUDE 234 BEDS AT [facility] Last Admin: 08/04/17 05:00 Dose: 100 mg Morphine Sulfate (Morphine) 2 mg IVP Q6 PRN PRN Reason: Pain, severe (8-10) Morphine Sulfate (Morphine) 1 mg IVP Q6 PRN PRN Reason: Pain, moderate (4-7) Jjlew-7-Dbuv Ethyl Esters (Lovaza) 1 gm PO BID [facility]CLUDE 234 BEDS AT [facility] Last Admin: 08/04/17 08:45 Dose: 1 gm Senna/Docusate Sodium (Senokot S 50 Mg-8.6 Mg) 2 tab PO HS [facility]S [facility]CLUDE 234 BEDS AT [facility] Last Admin: 08/03/17 22:46 Dose: 2 tab Senna/Docusate Sodium (Senokot S 50 Mg-8.6 Mg) 2 tab PO HS COUNTS INCLUDE 234 BEDS AT [facility] - Labs Labs: 08/04/17 05:20 08/04/17 05:20 PT 10.4 Seconds (9.8-13.1) 08/03/17 13:34 INR 1.0 (0.9-1.2) 08/03/17 13:34 APTT 33.8 Seconds (25.6-37.1) 08/03/17 13:34 - Constitutional Appears: In Acute Distress (secondary to pain) - Eye Exam Additional comments: right ptosis - Respiratory Exam Respiratory Exam: Clear to Ausculation Bilateral, NORMAL BREATHING PATTERN. absent: Rales, Rhonchi, Wheezes, Respiratory Distress - Cardiovascular Exam Cardiovascular Exam: REGULAR RHYTHM, +S1, +S2 - GI/Abdominal Exam GI & Abdominal Exam: Soft, Normal Bowel Sounds. absent: Distended, Guarding, Tenderness - Rectal Exam Rectal Exam: Deferred - Neurological Exam Neurological Exam: Alert, Awake, Oriented x3 Neuro motor strength exam: Left Upper Extremity: 5, Right Upper Extremity: 5, Left Lower Extremity: 5, Right Lower Extremity: 5 Additional comments: ptosis of right eye, diploplia of right eye - Psychiatric Exam Psychiatric exam: Normal Affect, Normal Mood - Skin Additional comments: mid thoracic spine: 2 x 2 cm area of erythema and induration, ~10cc of purulent drainage expressed from wound, no malodor Assessment and Plan (1) Ptosis of eyelid, right Assessment & Plan: 57 year old female presents with right sided ptosis and diplopia. Patient was evaluated by Dr. Galo (Neurology) in ED. Patient has thrombosis of MRA/MRV reviewed: Diffuse thrombosis in the left transverse sinus, sigmoid sinus and visualized internal jugular vein. -on therapuetic lovenox dose, will need usp anticoagulation. -close BP and Glycemic control -resume home medications -Dr. Winchester to eval and see patient, echo is pending. Status: Acute (2) Monocular diplopia of right eye Status: Acute (3) Non-insulin dependent type 2 diabetes mellitus Assessment & Plan: Hga1c: 7.0 invokanamet held, and glipizide resumed accuchecks achs and insulin sliding scale diabetic diet pt started on atorvastatin 80mg Status: Chronic (4) Hypertension Assessment & Plan: uncontrolled, monitor, close control Status: Chronic (5) Hypothyroid Status: Chronic (6) Abscess of back Assessment & Plan: s/p treatment with clinda, now draining. 2x2cm induration, cellulitic -start bactrim -blood cultures negative, afebrile, no leukocytosis. Status: Acute (7) Cellulitis Status: Acute (8) DVT prophylaxis Assessment & Plan: therapeutic lovenox Status: Acute
--- NOTE | 2017-08-04 11:44 | MRI ---
PROCEDURE: MR venogram of the head without contrast HISTORY: Suspecting left jugular/transverse sinus thrombosis COMPARISON: MRI brain without contrast from 08/03/2017 TECHNIQUE: MR venogram of the brain was performed with 2D [id number]-wy-[id number] technique without administration of intravenous contrast. Coronal and sagittal MIP images were obtained. FINDINGS: There is near complete absent flow related signal in the left transverse and sigmoid sinuses and left internal jugular vein at the skullbase. There is normal flow related signal in the superior sagittal sinus, inferior sagittal sinus, straight sinus, right transverse sinus, right sigmoid sinus and right jugular vein at the skullbase. IMPRESSION: 1. Diffuse thrombosis in the left transverse sinus, sigmoid sinus and visualized internal jugular vein. 2. Patent superior sagittal sinus, inferior sagittal sinus, straight sinus, right transverse sinus, right sigmoid sinus and visualized right internal jugular vein.
[2017-08-04] MEDS: Tmp-Smz 800 mg-160 mg DS Tab PO SCH ×2 (13:08→22:00)
[2017-08-04] MEDS: Sodium Chloride 0.45% 1,000 ML IV SCH ×2 (13:09→23:15)
[2017-08-04] MEDS ORDERED: Sodium Chloride 0.9% 50 ML IV ONE (13:34)
--- NOTE | 2017-08-04 15:40 | PN ---
DATE: 08/04/2017 CHIEF COMPLAINT: Followup of double vision of the right eye. 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 She also has evidence of on MR view of diffuse thrombosis on the left transverse sinus, sigmoid sinus and visualized internal jugular vein, which is likely the cause of headaches. No focal weakness on the extremities. She is on therapeutic Lovenox. She will need to be on Coumadin for 6 months. PAST MEDICAL HISTORY: Type II diabetes mellitus, hypertension, dyslipidemia. FAMILY HISTORY: Noncontributory. SOCIAL HISTORY: No illicit drug use, smoking or ETOH abuse. REVIEW OF SYSTEMS: A 14-point review of system is negative except for the HPI. MEDICATIONS: Reviewed by nurse per reconciliation sheet. ALLERGIES: NO KNOWN DRUG ALLERGIES. PHYSICAL EXAMINATION: GENERAL: The patient seen up in bed, in no acute distress. HEENT: Atraumatic, normocephalic. PERRLA. Extraocular muscles intact. NECK: Supple. No JVD. No adenopathy noted. LUNGS: Clear to auscultation. No adventitious sounds. HEART: S1 and S2, normal rate and rhythm. No murmur, rubs, or gallops. ABDOMEN: Soft, nontender, nondistended. Bowel sounds present. EXTREMITIES: No clubbing. No cyanosis. Peripheral pulses 2+ felt bilaterally. NEUROLOGIC: The patient is alert and oriented to person, place, month, and year. Speech is fluent without any errors. Cranial nerves II through XII are intact except for a right side eye ptosis and right side double vision. No facial asymmetry seen. Motor exam: Moves all extremities equally. No pronator drift seen. Sensory exam: Light touch pinprick, proprioception, and vibration is intact. Light touch is decreased up to the calves bilaterally. DTRs are 2+ throughout and 1 at the ankles. Coordination of [id number] intact. Gait deferred for now. LABORATORY DATA: A1c is 7. Sodium is 142, potassium 3.5, chloride of 106, carbon dioxide 27, BUN of 20, creatinine 0.7, random glucose 136. ASSESSMENT AND PLAN: This is a 57-year-old woman with a history of hypertension, non-insulin dependent diabetes mellitus, dyslipidemia who presented 1-week of diffuse partial headache, right side ptosis and right side double vision especially when covering her left eye. 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 Incidentally, she is found to have on MRI a diffuse thrombosis from the left transverse sinus and sigmoid sinus and a visualized internal jugular vein indicating cerebral venous thrombosis, which is likely the cause of the headaches. RECOMMENDATIONS: At this time, we recommend; 1. Keep blood sugars between 140 to 180 and advise a diabetic diet. 2. Keep her blood pressure between 120 to 130 mmHg. 3. Atorvastatin 80 mg for dyslipidemia to get her LDL below 100. 4. Baby aspirin 81 mg p.o. daily and therapeutic Lovenox for her venous sinus thrombosis. 5. She will need hematology consult to get the hypercoagulable workup in terms of Factor V Leiden, protein C and S, antiphospholipid syndrome, antithrombin III, lupus anticoagulant. 6. She will need to be on Coumadin for at least 6 months. So, we will recommend to taper her off the Lovenox and started her on Coumadin and followup with the medical team. Matthew Scott MD
--- NOTE | 2017-08-04 18:56 | CP.PCM.PN ---
Subjective - Date & Time of Evaluation Date of Evaluation: 08/04/17 Time of Evaluation: 18:00 - Subjective Subjective: patient has no current chest pain. Objective - Vital Signs/Intake and Output Vital Signs (last 24 hours): Temp Pulse Resp BP Pulse Ox 98.3 F 70 20 144/76 98 08/04/17 15:37 08/04/17 17:35 08/04/17 15:37 08/04/17 17:35 08/04/17 15:37 Intake and Output: 08/04/17 08/04/17 06:59 18:59 Intake Total 1450 Balance 1450 - Medications Medications: Current Medications Acetaminophen (Tylenol 325mg Tab) 650 mg PO Q6 PRN PRN Reason: Pain, Mild (1-3) Amlodipine Besylate (Norvasc) [address] [facility] Last Admin: 08/04/17 08:44 Dose: 5 mg Aspirin (Ecotrin) [address] [facility] Last Admin: 08/04/17 08:43 Dose: 81 mg Atorvastatin Calcium (Lipitor) [address] [facility] Last Admin: 08/04/17 08:44 Dose: 80 mg Cyanocobalamin (Vitamin B12) [address] [facility] Last Admin: 08/04/17 08:45 Dose: 500 mcg Docusate Sodium (Colace) [address] [facility] Last Admin: 08/04/17 11:42 Dose: Not Given Enoxaparin Sodium (Lovenox) 80 mg SC Q12 [facility] PRN Reason: Protocol Last Admin: 08/04/17 08:45 Dose: 80 mg Ergocalciferol (Drisdol 50,000 Intl Units Cap) [address] [facility] Glipizide (Glucotrol Xl) [address] [facility] Last Admin: 08/04/17 08:44 Dose: 5 mg Home Med (Canagliflozin/Metformin Hcl [Invokamet 150-1,000 Mg Tablet]) [address] [facility] Sodium Chloride (Sodium Chloride 0.45%) 1,000 mls @ 80 mls/hr IV .[id number] [facility] Stop: 08/05/17 10:22 Last Admin: 08/04/17 13:09 Dose: 80 mls/hr Insulin Human Lispro (Humalog) [address] [facility] PRN Reason: Protocol Last Admin: 09/06/17 17:35 Dose: Not Given Lactulose (Enulose) 30 gm PO DAILY PRN PRN Reason: Constipation Levothyroxine Sodium (Synthroid) 150 mcg PO DAILY@0630 [facility] Last Admin: 08/04/17 05:51 Dose: 150 mcg Lisinopril (Zestril) [address] [facility] Last Admin: 08/04/17 08:46 Dose: 40 mg Meclizine HCl (Antivert) 12.[address] [facility] Last Admin: 08/04/17 17:34 Dose: 12.5 mg Metoprolol Tartrate (Lopressor) [address] [facility] Last Admin: 08/04/17 17:35 Dose: 100 mg Vdimc-9-Svlo Ethyl Esters (Lovaza) [address] [facility] Last Admin: 08/04/17 17:36 Dose: 1 gm Senna/Docusate Sodium (Senokot S 50 Mg-8.6 Mg) 2 tab PO [facility] Last Admin: 08/03/17 22:46 Dose: 2 tab Senna/Docusate Sodium (Senokot S 50 Mg-8.6 Mg) 2 tab PO [facility] Trimethoprim/Sulfamethoxazole (Bactrim Ds Tab) [address] [facility] Stop: 08/11/17 12:17 Last Admin: 08/04/17 13:08 Dose: 1 tab - Labs Labs: 08/04/17 05:20 08/04/17 05:20 PT 10.4 Seconds (9.8-13.1) 08/03/17 13:34 INR 1.0 (0.9-1.2) 08/03/17 13:34 APTT 33.8 Seconds (25.6-37.1) 08/03/17 13:34 - Constitutional Appears: Non-toxic - Head Exam Head Exam: NORMAL INSPECTION - Eye Exam Eye Exam: Normal appearance - ENT Exam ENT Exam: Mucous Membranes Moist - Neck Exam Neck Exam: Full ROM - Respiratory Exam Respiratory Exam: NORMAL BREATHING PATTERN - Cardiovascular Exam Cardiovascular Exam: REGULAR RHYTHM - GI/Abdominal Exam GI & Abdominal Exam: Normal Bowel Sounds - Rectal Exam Rectal Exam: Deferred - Extremities Exam Extremities Exam: Pedal Edema - Back Exam Back Exam: NORMAL INSPECTION - Neurological Exam Neurological Exam: Alert - Psychiatric Exam Psychiatric exam: Normal Affect - Skin Skin Exam: Normal Color Assessment and Plan (1) Hypertension Assessment & Plan: will recommend continued blood pressure control Status: Acute (2) Ptosis of eyelid, right Assessment & Plan: followed by neuro Status: Acute (3) Non-insulin dependent type 2 diabetes mellitus Assessment & Plan: close glucose control Status: Chronic
[2017-08-04] MEDS ORDERED: Docusate-Senna 50 mg-8.6 mg Tab PO SCH (22:00)
[2017-08-04] MEDS: Docusate-Senna 50 mg-8.6 mg Tab PO SCH (23:22)
--- NOTE | 2017-08-05 02:55 | CP.PCM.CON ---
History of Present Illness - History of Present Illness History of Present Illness: 57 year old female with a history of HTN, DM, hypothryoid, presenting with headache, right eye ptosis, found to have left transverse, sigmoid sinus and left internal jugular thrombosis. 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 The patient is currently on therapeutic anticoagulation and notes to feeling better. Past medical history: HTN, DM, hypothyroid. Past surgical history: Denies Family history: Denies Social history: Denies tobacco, alcohol, and illicit drug use. Allergies: NKA Review of systems: All remaining review of systems including HEENT, cardiovascular, respiratory, gastrointestinal, genitourinary, musculoskeletal, dermatologic, neurologic, and psychiatric are negative unless mentioned in the HPI. Past Patient History - Past Medical History & Family History Past Medical History?: Yes - Past Social History Smoking Status: Never Smoked - CARDIAC Hx Cardiac Disorders: Yes Hx Hypertension: Yes - PULMONARY Hx Respiratory Disorders: No - NEUROLOGICAL Hx Neurological Disorder: No - HEENT Hx HEENT Problems: No - RENAL Hx Chronic Kidney Disease: No - ENDOCRINE/METABOLIC Hx Endocrine Disorders: Yes Hx Hypothyroidism: Yes - HEMATOLOGICAL/ONCOLOGICAL Hx Blood Disorders: No Hx AIDS: No Hx Human Immunodeficiency Virus (HIV): No - INTEGUMENTARY Hx Dermatological Problems: No - MUSCULOSKELETAL/RHEUMATOLOGICAL Hx Musculoskeletal Disorders: Yes Hx Falls: No Hx Herniated Disk: Yes (lumbar laminectomy 2017) - GASTROINTESTINAL Hx Gastrointestinal Disorders: No - GENITOURINARY/GYNECOLOGICAL Hx Genitourinary Disorders: No - PSYCHIATRIC Hx Psychophysiologic Disorder: No Hx Substance Use: No - SURGICAL HISTORY Hx Surgeries: Yes Hx Cholecystectomy: Yes Other/Comment: Laminectomy in 2017 - ANESTHESIA Hx Anesthesia: Yes Hx Anesthesia Reactions: No Hx Malignant Hyperthermia: No Has any member of the family had a problem w/ anesthesia?: No Meds Allergies/Adverse Reactions: Allergies Allergy/AdvReac Type Severity Reaction Status Date / Time No Known Allergies Allergy Verified 08/03/17 12:58 - Medications Medications: Current Medications Acetaminophen (Tylenol 325mg Tab) 650 mg PO Q6 PRN PRN Reason: Pain, Mild (1-3) Amlodipine Besylate (Norvasc) 5 mg PO DAILY [facility] Last Admin: 08/04/17 08:44 Dose: 5 mg Aspirin (Ecotrin) 81 mg PO DAILY [facility] Last Admin: 08/04/17 08:43 Dose: 81 mg Atorvastatin Calcium (Lipitor) 80 mg PO DAILY [facility] Last Admin: 08/04/17 08:44 Dose: 80 mg Cyanocobalamin (Vitamin B12) 500 mcg PO DAILY [facility] Last Admin: 08/04/17 08:45 Dose: 500 mcg Docusate Sodium (Colace) 100 mg PO BID [facility] Last Admin: 08/04/17 11:42 Dose: Not Given Enoxaparin Sodium (Lovenox) 80 mg SC Q12 [facility] PRN Reason: Protocol Last Admin: 08/04/17 22:00 Dose: 80 mg Ergocalciferol (Drisdol 50,000 Intl Units Cap) 1 cap PO MO [facility] Glipizide (Glucotrol Xl) 5 mg PO DAILY [facility] Last Admin: 08/04/17 08:44 Dose: 5 mg Home Med (Canagliflozin/Metformin Hcl [Invokamet 150-1,000 Mg Tablet]) 1 tab PO BID [facility] Sodium Chloride (Sodium Chloride 0.45%) 1,000 mls @ 80 mls/hr IV .[id number] [facility] Stop: 08/05/17 10:22 Last Admin: 08/04/17 23:15 Dose: 80 mls/hr Insulin Human Lispro (Humalog) 0 units SC ACHS [facility] PRN Reason: Protocol Last Admin: 08/04/17 23:00 Dose: Not Given Lactulose (Enulose) 30 gm PO DAILY PRN PRN Reason: Constipation Levothyroxine Sodium (Synthroid) 150 mcg PO DAILY@0630 [facility] Last Admin: 08/04/17 05:51 Dose: 150 mcg Lisinopril (Zestril) 40 mg PO DAILY [facility] Last Admin: 08/04/17 08:46 Dose: 40 mg Meclizine HCl (Antivert) 12.5 mg PO BID [facility] Last Admin: 08/04/17 17:34 Dose: 12.5 mg Metoprolol Tartrate (Lopressor) 100 mg PO Q12H [facility] Last Admin: 08/04/17 17:35 Dose: 100 mg Wgqdy-6-Apro Ethyl Esters (Lovaza) 1 gm PO BID [facility] Last Admin: 08/04/17 17:36 Dose: 1 gm Senna/Docusate Sodium (Senokot S 50 Mg-8.6 Mg) 2 tab PO HS [facility] Last Admin: 09/06/17 23:22 Dose: Not Given Trimethoprim/Sulfamethoxazole (Bactrim Ds Tab) 1 tab PO Q12 [facility] Stop: 08/11/17 12:17 Last Admin: 08/04/17 22:00 Dose: 1 tab Physical Exam - Head Exam Head Exam: ATRAUMATIC - Eye Exam Eye Exam: Normal appearance - ENT Exam ENT Exam: Mucous Membranes Dry - Respiratory Exam Respiratory Exam: NORMAL BREATHING PATTERN - Cardiovascular Exam Cardiovascular Exam: +S1, +S2 - GI/Abdominal Exam GI & Abdominal Exam: Normal Bowel Sounds - Extremities Exam Extremities exam: Positive for: normal inspection - Neurological Exam Neurological exam: Oriented x3 - Psychiatric Exam Psychiatric exam: Normal Affect, Normal Mood - Skin Skin Exam: Warm Results - Vital Signs Recent Vital Signs: Last Vital Signs Temp 98.3 F 08/04/17 23:37 Pulse 74 08/04/17 23:37 Resp 19 08/04/17 23:37 BP 155/78 H 08/04/17 23:37 Pulse Ox 98 08/04/17 23:37 - Labs Result Diagrams: 08/04/17 05:20 08/04/17 05:20 Labs: Laboratory Results - last 24 hr 08/04/17 08/04/17 08/04/17 05:20 05:20 05:26 WBC 6.3 RBC 4.42 Hgb 13.7 Hct 42.0 MCV 95.0 MCH 31.1 H MCHC 32.7 L RDW 13.5 Plt Count 160 MPV 10.5 Neut % (Auto) 53.4 Lymph % (Auto) 31.2 [place] % (Auto) 7.6 Eos % (Auto) 7.2 H Baso % (Auto) 0.6 Neut # 3.3 Lymph # 2.0 [place] # 0.5 Eos # 0.4 Baso # 0.0 Sodium 142 Potassium 3.5 L Chloride 106 Carbon Dioxide 27 Anion Gap 13 BUN 20 H Creatinine 0.7 Est GFR ( Amer) > 60 Est GFR (Non-Af Amer) > 60 POC Glucose (mg/dL) 117 H Random Glucose 136 H Calcium 9.2 08/04/17 08/04/17 08/04/17 11:05 16:03 21:45 WBC RBC Hgb Hct MCV MCH MCHC RDW Plt Count MPV Neut % (Auto) Lymph % (Auto) [place] % (Auto) Eos % (Auto) Baso % (Auto) Neut # Lymph # [place] # Eos # Baso # Sodium Potassium Chloride Carbon Dioxide Anion Gap BUN Creatinine Est GFR ( Amer) Est GFR (Non-Af Amer) POC Glucose (mg/dL) 149 H 163 H 174 H Random Glucose Calcium Assessment & Plan (1) DVT (deep venous thrombosis) Assessment and Plan: agree with therapeutic anticoagulation inherited thrombophilia work up sent recommend sending flow cytometery for paroxysmal nocturnal hemoglobinuria Thank you for this interesting consult. Status: Acute
[2017-08-05] MEDS: Levothyroxine 150 MCG TAB PO SCH (05:35)
[2017-08-05] MEDS: Insulin Lispro (humaLOG) 100 Units/ml Inj SC SCH ×4 (06:49→23:00)
--- NOTE | 2017-08-05 08:28 | CP.PCM.PN ---
Subjective - Date & Time of Evaluation Date of Evaluation: 08/05/17 Time of Evaluation: 08:25 - Subjective Subjective: Patient seen and examined bedside. Patient remains dizzy. She still has headache intermittently. Unable to open right eye. Abscess of back has minimal serosanguinous drainage, more indurated and erythematous than yesterday. Will start vancomycin and send culture. General surgery consult for further rec' s appreciated. Workup still pending for inherited thrombophilia. Patient is on therapeutic anticoagulation for DVT. Objective - Vital Signs/Intake and Output Vital Signs (last 24 hours): Temp Pulse Resp BP Pulse Ox 97.8 F 69 18 160/92 H 99 08/05/17 08:21 08/05/17 08:21 08/05/17 08:21 08/05/17 08:21 08/05/17 08:21 Intake and Output: 08/05/17 08/05/17 06:59 18:59 Intake Total 1000 Balance 1000 - Medications Medications: Current Medications Acetaminophen (Tylenol 325mg Tab) 650 mg PO Q6 PRN PRN Reason: Pain, Mild (1-3) Amlodipine Besylate (Norvasc) 5 mg PO DAILY [facility] Last Admin: 08/04/17 08:44 Dose: 5 mg Aspirin (Ecotrin) 81 mg PO DAILY [facility] Last Admin: 08/04/17 08:43 Dose: 81 mg Atorvastatin Calcium (Lipitor) 80 mg PO DAILY [facility] Last Admin: 08/04/17 08:44 Dose: 80 mg Cyanocobalamin (Vitamin B12) 500 mcg PO DAILY [facility] Last Admin: 08/04/17 08:45 Dose: 500 mcg Docusate Sodium (Colace) 100 mg PO BID [facility] Last Admin: 08/04/17 11:42 Dose: Not Given Enoxaparin Sodium (Lovenox) 80 mg SC Q12 [facility] PRN Reason: Protocol Last Admin: 08/04/17 22:00 Dose: 80 mg Ergocalciferol (Drisdol 50,000 Intl Units Cap) 1 cap PO MO [facility] Glipizide (Glucotrol Xl) 5 mg PO DAILY [facility] Last Admin: 08/04/17 08:44 Dose: 5 mg Home Med (Canagliflozin/Metformin Hcl [Invokamet 150-1,000 Mg Tablet]) 1 tab PO BID [facility] Sodium Chloride (Sodium Chloride 0.45%) 1,000 mls @ 80 mls/hr IV .[id number] [facility] Stop: 08/05/17 10:22 Last Admin: 08/04/17 23:15 Dose: 80 mls/hr Vancomycin HCl 1,200 mg/ (Sodium Chloride) 250 mls @ 250 mls/hr IVPB Q12H [facility] Insulin Human Lispro (Humalog) 0 units SC ACHS [facility] PRN Reason: Protocol Last Admin: 08/05/17 06:49 Dose: Not Given Lactulose (Enulose) 30 gm PO DAILY PRN PRN Reason: Constipation Levothyroxine Sodium (Synthroid) 150 mcg PO DAILY@0630 [facility] Last Admin: 08/05/17 05:35 Dose: 150 mcg Lisinopril (Zestril) 40 mg PO DAILY [facility] Last Admin: 08/04/17 08:46 Dose: 40 mg Meclizine HCl (Antivert) 12.5 mg PO BID [facility] Last Admin: 08/04/17 17:34 Dose: 12.5 mg Metoprolol Tartrate (Lopressor) 100 mg PO Q12H [facility] Last Admin: 08/05/17 05:05 Dose: 100 mg Gvitr-3-Jyxp Ethyl Esters (Lovaza) 1 gm PO BID [facility] Last Admin: 08/04/17 17:36 Dose: 1 gm Senna/Docusate Sodium (Senokot S 50 Mg-8.6 Mg) 2 tab PO HS [facility] Last Admin: 08/04/17 23:22 Dose: Not Given - Labs Labs: 08/04/17 05:20 08/04/17 05:20 PT 10.4 Seconds (9.8-13.1) 08/03/17 13:34 INR 1.0 (0.9-1.2) 08/03/17 13:34 APTT 33.8 Seconds (25.6-37.1) 08/03/17 13:34 - Constitutional Appears: No Acute Distress (ptosis of right eye, dizzy) - ENT Exam ENT Exam: Mucous Membranes Moist - Respiratory Exam Respiratory Exam: Clear to Ausculation Bilateral, NORMAL BREATHING PATTERN. absent: Rales, Rhonchi, Wheezes, Respiratory Distress - Cardiovascular Exam Cardiovascular Exam: REGULAR RHYTHM, +S1, +S2. absent: Bradycardia, Tachycardia , Murmur - GI/Abdominal Exam GI & Abdominal Exam: Soft, Normal Bowel Sounds. absent: Distended, Guarding, Tenderness - Neurological Exam Neurological Exam: Alert, Awake, Oriented x3 - Psychiatric Exam Psychiatric exam: Normal Affect, Normal Mood - Skin Skin Exam: Dry Additional comments: ~6.5 x 7 cm area of erythema and induration of upper back Assessment and Plan (1) DVT (deep venous thrombosis) Assessment & Plan: 57 year old female presents with right sided ptosis and diplopia. Patient was evaluated by Dr. Galo (Neurology) in ED. Patient has thrombosis in the left transverse sinus, sigmoid sinus and visualized internal jugular vein. -on therapuetic lovenox dose, will need skilled nursing anticoagulation -close BP and Glycemic control -resume home medications -pending inherited thrombophilia workup, flow cytometry Status: Acute (2) Ptosis of eyelid, right Status: Acute (3) Monocular diplopia of right eye Status: Acute (4) Non-insulin dependent type 2 diabetes mellitus Assessment & Plan: Hga1c: 7.0 glipizide resumed accuchecks achs and insulin sliding scale diabetic diet atorvastatin 80mg Status: Chronic (5) Hypertension Assessment & Plan: needs close control. monitor Status: Chronic (6) Hypothyroid Assessment & Plan: Status: Chronic (7) Abscess of back Assessment & Plan: previously treated with clindamycin, started on Vancomycin 08/05 surgery consulted Status: Acute (8) Cellulitis Status: Acute
[2017-08-05] MEDS: Enoxaparin 80 mg Syringe SC SCH ×2 (08:50→22:14)
[2017-08-05] MEDS: CYANOCOBALAMIN 500 MCG TAB PO SCH (08:52)
[2017-08-05] MEDS: Omega-3-Acid Ethyl Esters 1 GM Cap PO SCH ×2 (08:52→17:21)
[2017-08-05] MEDS: GlipiZIDE 5 mg SR Tab PO SCH (08:53)
[2017-08-05] MEDS ORDERED: Sodium Chloride 0.9% 100 ML ONE (09:02)
[2017-08-05] MEDS ORDERED: Gadodiamide 287 MG/ML VIAL (15ML) IV ONE (09:02)
--- NOTE | 2017-08-05 09:49 | CP.PCM.PN ---
Subjective - Date & Time of Evaluation Date of Evaluation: 08/05/17 Time of Evaluation: 09:40 - Subjective Subjective: Feels dizzy s/p MRI today Objective - Vital Signs/Intake and Output Vital Signs (last 24 hours): Temp Pulse Resp BP Pulse Ox 97.8 F 69 18 160/92 H 99 08/05/17 08:21 08/05/17 08:54 08/05/17 08:21 08/05/17 08:54 08/05/17 08:21 Intake and Output: 08/05/17 08/05/17 06:59 18:59 Intake Total 1000 Balance 1000 - Medications Medications: Current Medications Acetaminophen (Tylenol 325mg Tab) 650 mg PO Q6 PRN PRN Reason: Pain, Mild (1-3) Amlodipine Besylate (Norvasc) 5 mg PO DAILY [facility] Last Admin: 08/05/17 08:54 Dose: 5 mg Aspirin (Ecotrin) 81 mg PO DAILY [facility] Last Admin: 08/05/17 08:54 Dose: 81 mg Atorvastatin Calcium (Lipitor) 80 mg PO DAILY [facility] Last Admin: 08/05/17 08:52 Dose: 80 mg Cyanocobalamin (Vitamin B12) 500 mcg PO DAILY [facility] Last Admin: 08/05/17 08:52 Dose: 500 mcg Docusate Sodium (Colace) 100 mg PO BID [facility] Last Admin: 08/05/17 08:51 Dose: 100 mg Enoxaparin Sodium (Lovenox) 80 mg SC Q12 [facility] PRN Reason: Protocol Last Admin: 08/05/17 08:50 Dose: 80 mg Ergocalciferol (Drisdol 50,000 Intl Units Cap) 1 cap PO MO [facility] Glipizide (Glucotrol Xl) 5 mg PO DAILY [facility] Last Admin: 08/05/17 08:53 Dose: 5 mg Sodium Chloride (Sodium Chloride 0.45%) 1,000 mls @ 80 mls/hr IV .[id number] [facility] Stop: 08/05/17 10:22 Last Admin: 08/04/17 23:15 Dose: 80 mls/hr Vancomycin HCl 1,200 mg/ (Sodium Chloride) 250 mls @ 166.667 mls/hr IVPB Q12H [facility] Insulin Human Lispro (Humalog) 0 units SC ACHS [facility] PRN Reason: Protocol Last Admin: 08/05/17 06:49 Dose: Not Given Lactulose (Enulose) 30 gm PO DAILY PRN PRN Reason: Constipation Levothyroxine Sodium (Synthroid) 150 mcg PO DAILY@0630 [facility] Last Admin: 08/05/17 05:35 Dose: 150 mcg Lisinopril (Zestril) 40 mg PO DAILY [facility] Last Admin: 08/05/17 08:52 Dose: 40 mg Meclizine HCl (Antivert) 12.5 mg PO BID [facility] Last Admin: 08/05/17 08:50 Dose: 12.5 mg Metformin HCl (Glucophage) 1,000 mg PO BID [facility] Metoprolol Tartrate (Lopressor) 100 mg PO Q12H [facility] Last Admin: 08/05/17 05:05 Dose: 100 mg Gutbn-5-Afgl Ethyl Esters (Lovaza) 1 gm PO BID [facility] Last Admin: 08/05/17 08:52 Dose: 1 gm Senna/Docusate Sodium (Senokot S 50 Mg-8.6 Mg) 2 tab PO HS [facility] Last Admin: 08/04/17 23:22 Dose: Not Given - Labs Labs: 08/04/17 05:20 08/04/17 05:20 PT 10.4 Seconds (9.8-13.1) 08/03/17 13:34 INR 1.0 (0.9-1.2) 08/03/17 13:34 APTT 33.8 Seconds (25.6-37.1) 08/03/17 13:34 - Head Exam Head Exam: ATRAUMATIC - Eye Exam Eye Exam: Normal appearance - ENT Exam ENT Exam: Mucous Membranes Dry - Respiratory Exam Respiratory Exam: NORMAL BREATHING PATTERN - Cardiovascular Exam Cardiovascular Exam: +S1, +S2 - GI/Abdominal Exam GI & Abdominal Exam: Normal Bowel Sounds - Extremities Exam Extremities Exam: Normal Inspection - Neurological Exam Neurological Exam: Oriented x3 - Psychiatric Exam Psychiatric exam: Normal Affect, Normal Mood - Skin Skin Exam: Warm Assessment and Plan (1) DVT (deep venous thrombosis) Assessment & Plan: left transverse, sigmoid sinus thrombus left IJ thrombus on therapeutic anticoagulation will send flow cytometery for PN today inherited thrombophilia work up sent. Status: Acute
[2017-08-05] MEDS ORDERED: Lactulose 10 gm/15 ml Syrup PO PRN (10:30)
--- NOTE | 2017-08-05 10:36 | MRI ---
PROCEDURE: MR Angiography of the neck with and without contrast HISTORY: left jugular vein thrombosis. COMPARISON: None available. TECHNIQUE: Contrast enhanced and [id number] angiography of the neck was performed. Rotating 3D maximum intensity projection images of the cervical carotid and vertebral arteries were generated. 3D [id number] MR angiography was repeated following intravenous administration consisting of Omniscan 14 cc. FINDINGS: RIGHT CAROTID ARTERIES: Common Carotid Artery: Normal. Carotid Bifurcation: Normal. Internal Carotid Artery:Normal. External Carotid Artery (proximal branches): Normal. LEFT CAROTID ARTERIES: Common Carotid Artery: Normal. Carotid Bifurcation: Normal. Internal Carotid Artery:Normal. External Carotid Artery (proximal branches): Normal. VERTEBRAL ARTERIES: Right Vertebral Artery: The right vertebral artery is patent but small throughout its entire course. Left Vertebral Artery: Normal. OTHER FINDINGS: None. IMPRESSION: Normal MR Angiography of the neck.
--- NOTE | 2017-08-05 12:16 | CP.PCM.CON ---
History of Present Illness - History of Present Illness History of Present Illness: General Surgery- Dr. Cooper 57F with pmh of htn, DM, CVA presented to ED with complaints of headache for past one week. Surgery was consulted for drainage of sebaceous cyst on the back. Pt first noticed it two years ago with occasional drainage. has noticed an increase in size but no pain around site. Pt has similar lesion on left anterior chest wall and left shoulder. Pt denies associated fevers, chills, nausea vomiting PMH: HTN, NIDDM, Hypothyroidism, CVA PSH: Lumbar fusion Allergies: NKDA Social: denies etoh, tobacco, illicit drugs. Review of Systems - Review of Systems All systems: reviewed and no additional remarkable complaints except Past Patient History - Past Medical History & Family History Past Medical History?: Yes - Past Social History Smoking Status: Never Smoked - CARDIAC Hx Cardiac Disorders: Yes Hx Hypertension: Yes - PULMONARY Hx Respiratory Disorders: No - NEUROLOGICAL Hx Neurological Disorder: No - HEENT Hx HEENT Problems: No - RENAL Hx Chronic Kidney Disease: No - ENDOCRINE/METABOLIC Hx Endocrine Disorders: Yes Hx Hypothyroidism: Yes - HEMATOLOGICAL/ONCOLOGICAL Hx Blood Disorders: No Hx AIDS: No Hx Human Immunodeficiency Virus (HIV): No - INTEGUMENTARY Hx Dermatological Problems: No - MUSCULOSKELETAL/RHEUMATOLOGICAL Hx Musculoskeletal Disorders: Yes Hx Falls: No Hx Herniated Disk: Yes (lumbar laminectomy 2017) - GASTROINTESTINAL Hx Gastrointestinal Disorders: No - GENITOURINARY/GYNECOLOGICAL Hx Genitourinary Disorders: No - PSYCHIATRIC Hx Psychophysiologic Disorder: No Hx Substance Use: No - SURGICAL HISTORY Hx Surgeries: Yes Hx Cholecystectomy: Yes Other/Comment: Laminectomy in 2017 - ANESTHESIA Hx Anesthesia: Yes Hx Anesthesia Reactions: No Hx Malignant Hyperthermia: No Has any member of the family had a problem w/ anesthesia?: No Meds Allergies/Adverse Reactions: Allergies Allergy/AdvReac Type Severity Reaction Status Date / Time No Known Allergies Allergy Verified 08/03/17 12:58 - Medications Medications: Current Medications Acetaminophen (Tylenol 325mg Tab) 650 mg PO Q6 PRN PRN Reason: Pain, Mild (1-3) Amlodipine Besylate (Norvasc) 5 mg PO DAILY [facility] Last Admin: 08/05/17 08:54 Dose: 5 mg Aspirin (Ecotrin) 81 mg PO DAILY [facility] Last Admin: 08/05/17 08:54 Dose: 81 mg Atorvastatin Calcium (Lipitor) 80 mg PO DAILY [facility] Last Admin: 08/05/17 08:52 Dose: 80 mg Cyanocobalamin (Vitamin B12) 500 mcg PO DAILY [facility] Last Admin: 08/05/17 08:52 Dose: 500 mcg Docusate Sodium (Colace) 100 mg PO BID [facility] Last Admin: 08/05/17 08:51 Dose: 100 mg Enoxaparin Sodium (Lovenox) 80 mg SC Q12 [facility] PRN Reason: Protocol Last Admin: 08/05/17 08:50 Dose: 80 mg Ergocalciferol (Drisdol 50,000 Intl Units Cap) 1 cap PO MO [facility] Glipizide (Glucotrol Xl) 5 mg PO DAILY [facility] Last Admin: 08/05/17 08:53 Dose: 5 mg Vancomycin HCl 1,200 mg/ (Sodium Chloride) 250 mls @ 166.667 mls/hr IVPB Q12H [facility] Insulin Human Lispro (Humalog) 0 units SC ACHS [facility] PRN Reason: Protocol Last Admin: 08/05/17 06:49 Dose: Not Given Lactulose (Enulose) 30 gm PO DAILY PRN PRN Reason: Constipation Levothyroxine Sodium (Synthroid) 150 mcg PO DAILY@0630 [facility] Last Admin: 08/05/17 05:35 Dose: 150 mcg Lisinopril (Zestril) 40 mg PO DAILY [facility] Last Admin: 08/05/17 08:52 Dose: 40 mg Meclizine HCl (Antivert) 12.5 mg PO BID [facility] Last Admin: 08/05/17 08:50 Dose: 12.5 mg Metformin HCl (Glucophage) 1,000 mg PO BID [facility] Metoprolol Tartrate (Lopressor) 100 mg PO Q12H [facility] Last Admin: 08/05/17 05:05 Dose: 100 mg Pylyh-3-Dsre Ethyl Esters (Lovaza) 1 gm PO BID [facility] Last Admin: 08/05/17 08:52 Dose: 1 gm Senna/Docusate Sodium (Senokot S 50 Mg-8.6 Mg) 2 tab PO HS [facility] Last Admin: 08/04/17 23:22 Dose: Not Given Physical Exam - Constitutional Appears: No Acute Distress - Eye Exam Additional comments: R. Ptosis - Respiratory Exam Respiratory Exam: NORMAL BREATHING PATTERN. absent: Accessory Muscle Use, Rales , Rhonchi - Cardiovascular Exam Cardiovascular Exam: +S1, +S2 - GI/Abdominal Exam GI & Abdominal Exam: Soft. absent: Distended, Firm, Guarding, Rigid, Tenderness - Back Exam Additional comments: cyst noted mid upper back. non-fluctuant, non-indurated w/ central black comedo. - Skin Additional comments: additional cyst found on left anterior chest wall and left shoulder. non- eryethematous, non-indurated. Results - Vital Signs Recent Vital Signs: Last Vital Signs Temp 97.8 F 08/05/17 08:21 Pulse 69 08/05/17 08:54 Resp 18 08/05/17 08:21 BP 160/92 H 08/05/17 08:54 Pulse Ox 99 08/05/17 08:21 - Labs Result Diagrams: 08/04/17 05:20 08/04/17 05:20 Labs: Laboratory Results - last 24 hr 08/04/17 08/04/17 08/05/17 16:03 21:45 05:28 POC Glucose (mg/dL) 163 H 174 H 118 H Assessment & Plan - Assessment and Plan (Free Text) Assessment: 57F w/ draining non-infected sebaceous cyst on back Plan: - c/w medical management - no acute surgical intervention at this time - would recommend follow up as outpatient - further recs per Dr. Kenneth Dyer PGY1
--- NOTE | 2017-08-05 12:51 | CARD ---
APPROVED REPORT EXAM: Two-dimensional and M-mode echocardiogram with Doppler and color Doppler. Other Information Quality : GoodRhythm : NSR INDICATION Hypertension/HCVD 2D DIMENSIONS IVSd1.72 (0.7-1.1cm)LVDd3.37 (3.9-5.9cm) LVOT Diameter2.01 (1.8-2.4cm)PWd1.54 (0.7-1.1cm) IVSs1.89 (0.8-1.2cm)LVDs2.64 (2.5-4.0cm) FS (%) 21.6 %PWs1.82 (0.8-1.2cm) M-Mode DIMENSIONS Left Atrium (MM)4.65 (2.5-4.0cm)IVSd1.47 (0.7-1.1cm) Aortic Root3.09 (2.2-3.7cm)LVDd4.56 (4.0-5.6cm) Aortic Cusp Exc.1.94 (1.5-2.0cm)PWd1.47 (0.7-1.1cm) IVSs1.47 cmFS (%) 43 % LVDs2.62 (2.0-3.8cm)PWs1.74 cm Mitral Valve MV E Cpsgbssr55.6cm/sMV DECEL [id number] A Ivfhhthh67.1cm/s MV [id number]/A ratio0.6MVA (PHT)3.12cm2 TDI Lateral E' Peak V4.64cm/sMedial E' Peak V3.67cm/sE/Lateral E'10.0 E/Medial E'12.7 Pulmonary Valve PV Peak Xuxafbbi81.3cm/s LEFT VENTRICLE The left ventricle is normal size. There is moderate concentric left ventricular hypertrophy. The left ventricular function is normal. The left ventricular ejection fraction is 55% There is normal LV segmental wall motion. Transmitral Doppler flow pattern is Grade I-abnormal relaxation pattern. No left ventricle thrombus noted on this study. There is no ventricular septal defect visualized. There is no left ventricular aneurysm. There is no mass noted in the left ventricle. RIGHT VENTRICLE The right ventricle is normal size. There is normal right ventricular wall thickness. The right ventricular systolic function is normal. ATRIA The left atrium is moderately dilated. The right atrium size is normal. The interatrial septum is intact with no evidence for an atrial septal defect. AORTIC VALVE The aortic valve is normal in structure and function. No aortic regurgitation is present. There is no aortic valvular stenosis. There is no aortic valvular vegetation. MITRAL VALVE The mitral valve is normal in structure and function. There is no evidence of mitral valve prolapse. There is no mitral valve stenosis. Mitral regurgitation is trace. TRICUSPID VALVE The tricuspid valve is normal in structure and function. There is no tricuspid valve regurgitation noted. There is no tricuspid valve prolapse or vegetation. There is no tricuspid valve stenosis. PULMONIC VALVE The pulmonary valve is normal in structure and function. There is no pulmonic valvular regurgitation. There is no pulmonic valvular stenosis. GREAT VESSELS The aortic root is normal in size. The ascending aorta is normal in size. The IVC is normal in size and collapses >50% with inspiration. PERICARDIAL EFFUSION The pericardium appears normal. There is no pleural effusion. <Conclusion> Normal LV Systolic Function Concentric LVH Left Atrial Enlargement Concentric LVH Impaired Diastolic Relaxation
--- NOTE | 2017-08-05 21:51 | CP.PCM.PN ---
Subjective - Date & Time of Evaluation Date of Evaluation: 08/05/17 Time of Evaluation: 07:45 - Subjective Subjective: patient has no current chdest pain. Ptosis noted. Objective - Vital Signs/Intake and Output Vital Signs (last 24 hours): Temp Pulse Resp BP Pulse Ox 98.1 F 78 20 147/74 99 08/05/17 19:01 08/05/17 19:01 08/05/17 19:01 08/05/17 19:01 08/05/17 19:01 Intake and Output: 08/05/17 08/06/17 18:59 06:59 Intake Total 2210 Balance 2210 - Medications Medications: Current Medications Acetaminophen (Tylenol 325mg Tab) 650 mg PO Q6 PRN PRN Reason: Pain, Mild (1-3) Amlodipine Besylate (Norvasc) 5 mg PO DAILY [facility] Last Admin: 08/05/17 08:54 Dose: 5 mg Aspirin (Ecotrin) 81 mg PO DAILY [facility] Last Admin: 08/05/17 08:54 Dose: 81 mg Atorvastatin Calcium (Lipitor) 80 mg PO DAILY [facility] Last Admin: 08/05/17 08:52 Dose: 80 mg Cyanocobalamin (Vitamin B12) 500 mcg PO DAILY [facility] Last Admin: 08/05/17 08:52 Dose: 500 mcg Docusate Sodium (Colace) 100 mg PO BID [facility] Last Admin: 08/05/17 17:11 Dose: 100 mg Enoxaparin Sodium (Lovenox) 80 mg SC Q12 [facility] PRN Reason: Protocol Last Admin: 08/05/17 08:50 Dose: 80 mg Ergocalciferol (Drisdol 50,000 Intl Units Cap) 1 cap PO MO [facility] Glipizide (Glucotrol Xl) 5 mg PO DAILY [facility] Last Admin: 08/05/17 08:53 Dose: 5 mg Vancomycin HCl 1,200 mg/ (Sodium Chloride) 250 mls @ 166.667 mls/hr IVPB Q12@ 0100,1300 [facility] Insulin Human Lispro (Humalog) 0 units SC ACHS [facility] PRN Reason: Protocol Last Admin: 08/05/17 17:12 Dose: Not Given Lactulose (Enulose) 30 gm PO DAILY PRN PRN Reason: Constipation Levothyroxine Sodium (Synthroid) 150 mcg PO DAILY@0630 [facility] Last Admin: 08/05/17 05:35 Dose: 150 mcg Lisinopril (Zestril) 40 mg PO DAILY [facility] Last Admin: 08/05/17 08:52 Dose: 40 mg Meclizine HCl (Antivert) 12.5 mg PO BID [facility] Last Admin: 08/05/17 17:11 Dose: 12.5 mg Metformin HCl (Glucophage) 1,000 mg PO BID [facility] Last Admin: 08/05/17 17:12 Dose: 1,000 mg Metoprolol Tartrate (Lopressor) 100 mg PO Q12H [facility] Last Admin: 08/05/17 17:21 Dose: 100 mg Ibqif-6-Dijb Ethyl Esters (Lovaza) 1 gm PO BID [facility] Last Admin: 08/05/17 17:21 Dose: 1 gm Senna/Docusate Sodium (Senokot S 50 Mg-8.6 Mg) 2 tab PO HS [facility] Last Admin: 08/04/17 23:22 Dose: Not Given - Labs Labs: 08/04/17 05:20 08/04/17 05:20 PT 10.4 Seconds (9.8-13.1) 08/03/17 13:34 INR 1.0 (0.9-1.2) 08/03/17 13:34 APTT 33.8 Seconds (25.6-37.1) 08/03/17 13:34 - Constitutional Appears: Non-toxic - Head Exam Head Exam: NORMAL INSPECTION - Eye Exam Eye Exam: Normal appearance - ENT Exam ENT Exam: Mucous Membranes Moist - Neck Exam Neck Exam: Full ROM - Respiratory Exam Respiratory Exam: NORMAL BREATHING PATTERN - Cardiovascular Exam Cardiovascular Exam: REGULAR RHYTHM - GI/Abdominal Exam GI & Abdominal Exam: Normal Bowel Sounds - Rectal Exam Rectal Exam: Deferred - Extremities Exam Extremities Exam: absent: Pedal Edema - Back Exam Back Exam: NORMAL INSPECTION - Neurological Exam Neurological Exam: Alert - Psychiatric Exam Psychiatric exam: Normal Affect - Skin Skin Exam: Normal Color Assessment and Plan (1) Hypertension Assessment & Plan: continue blood pressure control. Status: Acute (2) Ptosis of eyelid, right Assessment & Plan: hypercoagulable workup in progress Status: Acute (3) Non-insulin dependent type 2 diabetes mellitus Status: Chronic
[2017-08-05] MEDS: Docusate-Senna 50 mg-8.6 mg Tab PO SCH (23:00)
[2017-08-06] MEDS: Levothyroxine 150 MCG TAB PO SCH (05:40)
[2017-08-06] MEDS: Insulin Lispro (humaLOG) 100 Units/ml Inj SC SCH ×4 (06:59→21:51)
[2017-08-06] MEDS: Omega-3-Acid Ethyl Esters 1 GM Cap PO SCH ×3 (09:15→19:03)
[2017-08-06] MEDS: Enoxaparin 80 mg Syringe SC SCH ×2 (09:15→21:50)
[2017-08-06] MEDS: CYANOCOBALAMIN 500 MCG TAB PO SCH (09:16)
[2017-08-06] MEDS: GlipiZIDE 5 mg SR Tab PO SCH (09:17)
--- NOTE | 2017-08-06 11:03 | CP.PCM.PN ---
Subjective - Date & Time of Evaluation Date of Evaluation: 08/06/17 Time of Evaluation: 11:00 - Subjective Subjective: No overnight events. Patient seen and examined with attending. She is able to open her eye more today. Diploplia slowly improving. Seen by surgery, infected sebaceous cyst. Still draining, serosanguinous fluid. Still indurated and erythematous, will add zosyn given comorbidities. Objective - Vital Signs/Intake and Output Vital Signs (last 24 hours): Temp Pulse Resp BP Pulse Ox 98.0 F 70 18 119/97 H 100 08/06/17 08:00 08/06/17 09:17 08/06/17 08:00 08/06/17 09:17 08/06/17 08:00 - Medications Medications: Current Medications Acetaminophen (Tylenol 325mg Tab) 650 mg PO Q6 PRN PRN Reason: Pain, Mild (1-3) Amlodipine Besylate (Norvasc) 5 mg PO DAILY [facility] Last Admin: 08/06/17 09:17 Dose: 5 mg Aspirin (Ecotrin) 81 mg PO DAILY [facility] Last Admin: 08/06/17 09:19 Dose: 81 mg Atorvastatin Calcium (Lipitor) 80 mg PO DAILY [facility] Last Admin: 08/06/17 09:18 Dose: 80 mg Cyanocobalamin (Vitamin B12) 500 mcg PO DAILY [facility] Last Admin: 08/06/17 09:16 Dose: 500 mcg Docusate Sodium (Colace) 100 mg PO BID [facility] Last Admin: 08/06/17 09:16 Dose: 100 mg Enoxaparin Sodium (Lovenox) 80 mg SC Q12 [facility] PRN Reason: Protocol Last Admin: 08/06/17 09:15 Dose: 80 mg Ergocalciferol (Drisdol 50,000 Intl Units Cap) 1 cap PO MO [facility] Glipizide (Glucotrol Xl) 5 mg PO DAILY [facility] Last Admin: 08/06/17 09:17 Dose: 5 mg Vancomycin HCl 1,200 mg/ (Sodium Chloride) 250 mls @ 166.667 mls/hr IVPB Q12@ 0100,1300 [facility] Last Admin: 08/06/17 01:36 Dose: 166.667 mls/hr Insulin Human Lispro (Humalog) 0 units SC ACHS [facility] PRN Reason: Protocol Last Admin: 08/06/17 06:59 Dose: Not Given Lactulose (Enulose) 30 gm PO DAILY PRN PRN Reason: Constipation Levothyroxine Sodium (Synthroid) 150 mcg PO DAILY@0630 [facility] Last Admin: 08/06/17 05:40 Dose: 150 mcg Lisinopril (Zestril) 40 mg PO DAILY [facility] Last Admin: 08/06/17 09:17 Dose: 40 mg Meclizine HCl (Antivert) 12.5 mg PO BID [facility] Last Admin: 08/06/17 09:16 Dose: 12.5 mg Metformin HCl (Glucophage) 1,000 mg PO BID [facility] Last Admin: 08/06/17 09:19 Dose: 1,000 mg Metoprolol Tartrate (Lopressor) 100 mg PO Q12H [facility] Last Admin: 08/06/17 05:05 Dose: 100 mg Brkxi-6-[id number] Ethyl Esters (Lovaza) 1 gm PO BID [facility] Last Admin: 08/06/17 09:15 Dose: 1 gm Senna/Docusate Sodium (Senokot S 50 Mg-8.6 Mg) 2 tab PO HS [facility] Last Admin: 08/05/17 23:00 Dose: 2 tab - Labs Labs: 08/04/17 05:20 08/04/17 05:20 PT 10.4 Seconds (9.8-13.1) 08/03/17 13:34 INR 1.0 (0.9-1.2) 08/03/17 13:34 APTT 33.8 Seconds (25.6-37.1) 08/03/17 13:34 - Constitutional Appears: No Acute Distress - Eye Exam Additional comments: right eye more open - ENT Exam ENT Exam: Mucous Membranes Moist - Respiratory Exam Respiratory Exam: Clear to Ausculation Bilateral, NORMAL BREATHING PATTERN - Cardiovascular Exam Cardiovascular Exam: REGULAR RHYTHM, +S1, +S2. absent: Murmur - GI/Abdominal Exam GI & Abdominal Exam: Soft, Normal Bowel Sounds. absent: Tenderness - Extremities Exam Extremities Exam: Full ROM, Normal Capillary Refill, Normal Inspection. absent : Joint Swelling, Pedal Edema - Psychiatric Exam Psychiatric exam: Normal Affect, Normal Mood - Skin Skin Exam: Dry Additional comments: sebaceous cyst ~6.5 x 7 cm ,erythema and induration of upper back Assessment and Plan (1) DVT (deep venous thrombosis) Assessment & Plan: 57 year old female presents with right sided ptosis and diplopia 2' to dvt -on therapuetic lovenox dose, will need anticoagulation, check coags, will likely start warfarin today. - Will d/w Dr. Robert -pending inherited thrombophilia workup, flow cytometry Status: Acute (2) Ptosis of eyelid, right Assessment & Plan: improving Status: Acute (3) Monocular diplopia of right eye Assessment & Plan: improving Status: Acute (4) Non-insulin dependent type 2 diabetes mellitus Assessment & Plan: continue with home medication, not requiring insulin coverage Status: Chronic (5) Hypertension Status: Chronic (6) Hypothyroid Status: Chronic (7) Abscess of back Assessment & Plan: sugery evaluated, not abscess Status: Resolved (8) Cellulitis Assessment & Plan: persists, dose not appear to be improving, continue with vanco, add zosyn Status: Acute (9) Sebaceous cyst Assessment & Plan: infected: on vanco/zosyn surgery evaluated the pt. Status: Acute
[2017-08-06 12:04] LABS: HEMATOCRIT 41.4 % (34.0-47.0); MEAN CELL VOLUME 95.5 fl (81.0-99.0); MEAN CORPUSCULAR HEMOGLOBIN 31.2 pg (27.0-31.0); MEAN CORPUSCULAR HGB CONC 32.7 g/dL (33.0-37.0); RED CELL DISTRIBUTION WIDTH 13.6 % (11.5-14.5); WHITE BLOOD COUNT 5.2 K/uL (4.8-10.8)
[2017-08-06 12:12] LABS: BLOOD UREA NITROGEN 13 mg/dl (7-17); CALCIUM 9.5 mg/dL (8.4-10.2); CARBON DIOXIDE 26 mmol/L (22-30); CHLORIDE 106 mmol/L (98-107); GFR AFRICAN-AMERICAN > 60; GLUCOSE,RANDOM 185 mg/dL (65-105); POTASSIUM 4.1 MMOL/L (3.6-5.0); SODIUM 141 mmol/l (132-148)
[2017-08-06] MEDS: Piperacillin/Tazobact 3.375 GM in Sodium Chloride 0.9% 100 ML IVPB SCH ×2 (16:48→16:49)
--- NOTE | 2017-08-06 18:24 | CARD ---
APPROVED REPORT EKG Measurement Heart [id number] <Conclusion> Normal sinus rhythm Nonspecific T wave abnormality Abnormal ECG
[2017-08-06] MEDS: Docusate-Senna 50 mg-8.6 mg Tab PO SCH (21:52)
[2017-08-07] MEDS: Piperacillin/Tazobact 3.375 GM in Sodium Chloride 0.9% 100 ML IVPB SCH ×3 (00:19→16:52)
[2017-08-07 05:12] LABS: CARDIOLIPIN AB (IGA) <11 APL (<=11)
[2017-08-07] MEDS: Levothyroxine 150 MCG TAB PO SCH (05:43)
[2017-08-07 07:08] LABS: PHOSPHATIDYLSERINE AB IGM <25 U/mL (<25)
[2017-08-07] MEDS: Insulin Lispro (humaLOG) 100 Units/ml Inj SC SCH ×4 (09:18→21:21)
[2017-08-07] MEDS: Omega-3-Acid Ethyl Esters 1 GM Cap PO SCH ×2 (09:21→16:54)
[2017-08-07] MEDS: GlipiZIDE 5 mg SR Tab PO SCH (09:21)
[2017-08-07] MEDS: CYANOCOBALAMIN 500 MCG TAB PO SCH (09:22)
--- NOTE | 2017-08-07 10:29 | CP.PCM.PN ---
Subjective - Date & Time of Evaluation Date of Evaluation: 08/07/17 Time of Evaluation: 10:29 - Subjective Subjective: patient feels a lot better On Lovenox will start Coumadin today Objective - Vital Signs/Intake and Output Vital Signs (last 24 hours): Temp Pulse Resp BP Pulse Ox 98.3 F 63 18 149/81 96 08/07/17 08:17 08/07/17 09:23 08/07/17 08:17 08/07/17 09:23 08/07/17 08:17 - Medications Medications: Current Medications Acetaminophen (Tylenol 325mg Tab) 650 mg PO Q6 PRN PRN Reason: Pain, Mild (1-3) Last Admin: 08/06/17 12:26 Dose: 650 mg Amlodipine Besylate (Norvasc) 5 mg PO DAILY [facility] Last Admin: 08/07/17 09:22 Dose: 5 mg Aspirin (Ecotrin) 81 mg PO DAILY [facility] Last Admin: 08/07/17 09:20 Dose: 81 mg Atorvastatin Calcium (Lipitor) 80 mg PO DAILY [facility] Last Admin: 08/07/17 09:21 Dose: 80 mg Cyanocobalamin (Vitamin B12) 500 mcg PO DAILY [facility] Last Admin: 08/07/17 09:22 Dose: 500 mcg Cyclobenzaprine HCl (Flexeril) 5 mg PO HS PRN PRN Reason: Muscle spasm Last Admin: 08/06/17 21:55 Dose: 5 mg Docusate Sodium (Colace) 100 mg PO BID [facility] Last Admin: 08/07/17 09:21 Dose: 100 mg Ergocalciferol (Drisdol 50,000 Intl Units Cap) 1 cap PO [facility] Glipizide (Glucotrol Xl) 5 mg PO DAILY [facility] Last Admin: 08/07/17 09:21 Dose: 5 mg Vancomycin HCl 1,200 mg/ (Sodium Chloride) 250 mls @ 166.667 mls/hr IVPB Q12@ 0100,1300 [facility] Last Admin: 08/07/17 02:00 Dose: 166.667 mls/hr Piperacillin Sod/Tazobactam (Sod 3.375 gm/ Sodium Chloride) 100 mls @ 100 mls/ hr IVPB Q8 [facility] Last Admin: 08/07/17 09:32 Dose: 100 mls/hr Insulin Human Lispro (Humalog) 0 units SC ACHS [facility] PRN Reason: Protocol Last Admin: 08/07/17 09:18 Dose: Not Given Lactulose (Enulose) 30 gm PO DAILY PRN PRN Reason: Constipation Levothyroxine Sodium (Synthroid) 150 mcg PO DAILY@0630 [facility] Last Admin: 08/07/17 05:43 Dose: 150 mcg Lisinopril (Zestril) 40 mg PO DAILY [facility] Last Admin: 08/07/17 09:23 Dose: 40 mg Meclizine HCl (Antivert) 12.5 mg PO BID [facility] Last Admin: 08/07/17 09:20 Dose: 12.5 mg Metformin HCl (Glucophage) 1,000 mg PO BID [facility] Last Admin: 08/07/17 09:21 Dose: 1,000 mg Metoprolol Tartrate (Lopressor) 100 mg PO Q12H [facility] Last Admin: 08/07/17 05:43 Dose: 100 mg Fnrre-2-Dlby Ethyl Esters (Lovaza) 1 gm PO BID [facility] Last Admin: 08/07/17 09:21 Dose: 1 gm Senna/Docusate Sodium (Senokot S 50 Mg-8.6 Mg) 2 tab PO HS [facility] Last Admin: 08/06/17 21:52 Dose: 2 tab Tramadol HCl (Ultram) 50 mg PO Q8 PRN PRN Reason: pain 4-7 - Labs Labs: 08/06/17 11:35 08/06/17 11:55 PT 10.1 Seconds (9.8-13.1) 08/06/17 11:35 INR 1.0 (0.9-1.2) 08/06/17 11:35 APTT 33.8 Seconds (25.6-37.1) 08/03/17 13:34
[2017-08-07] MEDS: Enoxaparin 80 mg Syringe SC SCH ×2 (11:33→20:22)
[2017-08-07 12:05] LABS: B2 GLYCOPROTEIN I AB(IGA) <9 SAU (<=20); B2 GLYCOPROTEIN I AB(IGG) <9 SGU (<=20); B2 GLYCOPROTEIN I AB(IGM) 14 SMU (<=20); PHOSPHATIDYLSERINE AB IGA <20 U/mL (<20)
[2017-08-07] MEDS ORDERED: Oxycodone/Acetaminophen 5/325 mg Tab PO PRN (20:10)
[2017-08-07] MEDS: Docusate-Senna 50 mg-8.6 mg Tab PO SCH (22:00)
[2017-08-08] MEDS: Piperacillin/Tazobact 3.375 GM in Sodium Chloride 0.9% 100 ML IVPB SCH ×3 (00:22→17:04)
[2017-08-08] MEDS: Levothyroxine 150 MCG TAB PO SCH (05:41)
[2017-08-08] MEDS: Enoxaparin 80 mg Syringe SC SCH ×2 (09:25→21:20)
[2017-08-08] MEDS: Omega-3-Acid Ethyl Esters 1 GM Cap PO SCH ×2 (09:26→17:02)
[2017-08-08] MEDS: Insulin Lispro (humaLOG) 100 Units/ml Inj SC SCH ×4 (09:27→22:30)
[2017-08-08] MEDS: GlipiZIDE 5 mg SR Tab PO SCH (09:27)
[2017-08-08] MEDS: CYANOCOBALAMIN 500 MCG TAB PO SCH (09:28)
--- NOTE | 2017-08-08 10:01 | CP.PCM.PN ---
Subjective - Date & Time of Evaluation Date of Evaluation: 08/08/17 Time of Evaluation: 09:59 - Subjective Subjective: Patient remains stable Had some headaches yesterday BP meds were adjusted BP today is better. Has no fever. Objective - Vital Signs/Intake and Output Vital Signs (last 24 hours): Temp Pulse Resp BP Pulse Ox 98.2 F 73 18 145/78 99 08/08/17 08:25 08/08/17 09:27 08/08/17 08:25 08/08/17 09:27 08/08/17 08:25 - Medications Medications: Current Medications Acetaminophen (Tylenol 325mg Tab) 650 mg PO Q6 PRN PRN Reason: Pain, Mild (1-3) Last Admin: 08/06/17 12:26 Dose: 650 mg Amlodipine Besylate (Norvasc) 10 mg PO DAILY [facility] Aspirin (Ecotrin) 81 mg PO DAILY [facility] Last Admin: 08/08/17 09:26 Dose: 81 mg Atorvastatin Calcium (Lipitor) 80 mg PO DAILY [facility] Last Admin: 08/08/17 09:27 Dose: 80 mg Cyanocobalamin (Vitamin B12) 500 mcg PO DAILY [facility] Last Admin: 08/08/17 09:28 Dose: 500 mcg Cyclobenzaprine HCl (Flexeril) 5 mg PO HS PRN PRN Reason: Muscle spasm Last Admin: 08/08/17 09:25 Dose: 5 mg Docusate Sodium (Colace) 100 mg PO BID [facility] Last Admin: 08/08/17 09:26 Dose: 100 mg Enoxaparin Sodium (Lovenox) 80 mg SC Q12 [facility] PRN Reason: Protocol Last Admin: 08/08/17 09:25 Dose: 80 mg Ergocalciferol (Drisdol 50,000 Intl Units Cap) 1 cap PO MO [facility] Glipizide (Glucotrol Xl) 5 mg PO DAILY [facility] Last Admin: 08/08/17 09:27 Dose: 5 mg Vancomycin HCl 1,200 mg/ (Sodium Chloride) 250 mls @ 166.667 mls/hr IVPB Q12@ 0100,1300 [facility] Last Admin: 08/08/17 00:22 Dose: 166.667 mls/hr Piperacillin Sod/Tazobactam (Sod 3.375 gm/ Sodium Chloride) 100 mls @ 100 mls/ hr IVPB Q8 [facility] Last Admin: 08/08/17 09:28 Dose: Not Given Insulin Human Lispro (Humalog) 0 units SC [facility] PRN Reason: Protocol Last Admin: 08/08/17 09:27 Dose: Not Given Lactulose (Enulose) 30 gm PO DAILY PRN PRN Reason: Constipation Levothyroxine Sodium (Synthroid) 150 mcg PO DAILY@0630 [facility] Last Admin: 08/08/17 05:41 Dose: 150 mcg Lisinopril (Zestril) 40 mg PO DAILY [facility] Last Admin: 08/08/17 09:27 Dose: 40 mg Meclizine HCl (Antivert) 12.5 mg PO BID [facility] Last Admin: 08/08/17 09:26 Dose: 12.5 mg Metformin HCl (Glucophage) 1,000 mg PO BID [facility] Last Admin: 08/08/17 09:27 Dose: 1,000 mg Metoprolol Tartrate (Lopressor) 100 mg PO Q12H [facility] Last Admin: 08/08/17 04:03 Dose: 100 mg Gpdyy-6-Xslb Ethyl Esters (Lovaza) 1 gm PO BID [facility] Last Admin: 08/08/17 09:26 Dose: 1 gm Oxycodone/Acetaminophen (Percocet 5/325 Mg Tab) 1 tab PO Q4 PRN PRN Reason: Pain, moderate (4-7) Stop: 08/10/17 20:11 Last Admin: 08/07/17 20:20 Dose: 1 tab Senna/Docusate Sodium (Senokot S 50 Mg-8.6 Mg) 2 tab PO HS [facility] Last Admin: 08/07/17 22:00 Dose: 2 tab Tramadol HCl (Ultram) 50 mg PO Q8 PRN PRN Reason: pain 4-7 Last Admin: 08/07/17 16:51 Dose: 50 mg Warfarin Sodium (Coumadin) 5 mg PO QD5 [facility] PRN Reason: Protocol Stop: 08/08/17 17:01 - Labs Labs: 08/06/17 11:35 08/06/17 11:55 PT 11.2 Seconds (9.8-13.1) 08/08/17 08:10 INR 1.1 (0.9-1.2) 08/08/17 08:10 APTT 33.8 Seconds (25.6-37.1) 08/03/17 13:34
[2017-08-08 11:06] LABS: BASO # 0.1 K/uL (0.0-0.2); BASO % 1.1 % (0.0-2.0); EOS # 0.2 K/uL (0.0-0.7); EOS % 2.7 % (0.0-4.0); HEMATOCRIT 44.4 % (34.0-47.0); LYMPH # 1.1 K/uL (1.0-4.3); LYMPH % 18.3 % (20.0-40.0); MEAN CELL VOLUME 95.4 fl (81.0-99.0); MEAN CORPUSCULAR HEMOGLOBIN 31.6 pg (27.0-31.0); MEAN CORPUSCULAR HGB CONC 33.1 g/dL (33.0-37.0); MEAN PLATELET VOLUME 10.8 fl (7.2-11.7); MONO # 0.3 K/uL (0.0-0.8); MONO % 5.7 % (0.0-10.0); NEUT # 4.3 K/uL (1.8-7.0); NEUT % 72.2 % (50.0-75.0); RED CELL DISTRIBUTION WIDTH 13.3 % (11.5-14.5)
[2017-08-08 11:30] LABS: ALB/GLOB RATIO 1.2 (1.0-2.1); ALKALINE PHOSPHATASE 140 U/L (38-126); ALT/SGPT 51 U/L (9-52); AST/SGOT 55 U/L (14-36); BILIRUBIN,TOTAL 1.5 mg/dl (0.2-1.3); BLOOD UREA NITROGEN 9 mg/dl (7-17); CALCIUM 9.2 mg/dL (8.4-10.2); CARBON DIOXIDE 30 mmol/L (22-30); CHLORIDE 99 mmol/L (98-107); GFR AFRICAN-AMERICAN > 60; GLUCOSE,RANDOM 181 mg/dL (65-105); POTASSIUM 3.4 MMOL/L (3.6-5.0); SODIUM 140 mmol/l (132-148); TOTAL PROTEIN 7.4 G/DL (6.3-8.2)
[2017-08-08] MEDS: Pantoprazole 20 mg EC Tab PO SCH (13:38)
--- NOTE | 2017-08-08 20:56 | CP.PCM.PN ---
Subjective - Date & Time of Evaluation Date of Evaluation: 08/08/17 Time of Evaluation: 16:00 - Subjective Subjective: No complaints. Objective - Vital Signs/Intake and Output Vital Signs (last 24 hours): Temp Pulse Resp BP Pulse Ox 98.0 F 64 20 98/49 L 100 08/08/17 19:39 08/08/17 19:39 08/08/17 19:39 08/08/17 19:39 08/08/17 19:39 Intake and Output: 08/08/17 08/09/17 18:59 06:59 Intake Total 600 Balance 600 - Medications Medications: Current Medications Acetaminophen (Tylenol 325mg Tab) 650 mg PO Q6 PRN PRN Reason: Pain, Mild (1-3) Last Admin: 08/06/17 12:26 Dose: 650 mg Amlodipine Besylate (Norvasc) 10 mg PO DAILY [facility] Last Admin: 08/08/17 13:38 Dose: 10 mg Aspirin (Ecotrin) 81 mg PO DAILY [facility] Last Admin: 08/08/17 09:26 Dose: 81 mg Atorvastatin Calcium (Lipitor) 80 mg PO DAILY [facility] Last Admin: 08/08/17 09:27 Dose: 80 mg Cyanocobalamin (Vitamin B12) 500 mcg PO DAILY [facility] Last Admin: 08/08/17 09:28 Dose: 500 mcg Cyclobenzaprine HCl (Flexeril) 5 mg PO HS PRN PRN Reason: Muscle spasm Last Admin: 08/08/17 09:25 Dose: 5 mg Docusate Sodium (Colace) 100 mg PO BID [facility] Last Admin: 08/08/17 17:02 Dose: 100 mg Enoxaparin Sodium (Lovenox) 80 mg SC Q12 [facility] PRN Reason: Protocol Last Admin: 08/08/17 09:25 Dose: 80 mg Ergocalciferol (Drisdol 50,000 Intl Units Cap) 1 cap PO MO [facility] Glipizide (Glucotrol Xl) 5 mg PO DAILY [facility] Last Admin: 08/08/17 09:27 Dose: 5 mg Vancomycin HCl 1,200 mg/ (Sodium Chloride) 250 mls @ 166.667 mls/hr IVPB Q12@ 0100,1300 [facility] Last Admin: 08/08/17 13:47 Dose: Not Given Piperacillin Sod/Tazobactam (Sod 3.375 gm/ Sodium Chloride) 100 mls @ 100 mls/ hr IVPB Q8 [facility] Last Admin: 08/08/17 17:04 Dose: Not Given Insulin Human Lispro (Humalog) 0 units SC ACHS [facility] PRN Reason: Protocol Last Admin: 08/08/17 16:43 Dose: Not Given Lactulose (Enulose) 30 gm PO DAILY PRN PRN Reason: Constipation Levothyroxine Sodium (Synthroid) 150 mcg PO DAILY@0630 [facility] Last Admin: 08/08/17 05:41 Dose: 150 mcg Lisinopril (Zestril) 40 mg PO DAILY [facility] Last Admin: 08/08/17 09:27 Dose: 40 mg Meclizine HCl (Antivert) 12.5 mg PO BID [facility] Last Admin: 08/08/17 17:02 Dose: 12.5 mg Metformin HCl (Glucophage) 1,000 mg PO BID [facility] Last Admin: 08/08/17 17:02 Dose: 1,000 mg Metoprolol Tartrate (Lopressor) 100 mg PO Q12H [facility] Last Admin: 08/08/17 17:02 Dose: 100 mg Qlgpy-3-Inlb Ethyl Esters (Lovaza) 1 gm PO BID [facility] Last Admin: 08/08/17 17:02 Dose: 1 gm Ondansetron HCl (Zofran Inj) 4 mg IVP Q6 PRN PRN Reason: Nausea/Vomiting Oxycodone/Acetaminophen (Percocet 5/325 Mg Tab) 1 tab PO Q4 PRN PRN Reason: Pain, moderate (4-7) Stop: 08/10/17 20:11 Last Admin: 08/07/17 20:20 Dose: 1 tab Pantoprazole Sodium (Protonix Ec Tab) 20 mg PO DAILY [facility] Last Admin: 08/08/17 13:38 Dose: 20 mg Senna/Docusate Sodium (Senokot S 50 Mg-8.6 Mg) 2 tab PO HS [facility] Last Admin: 08/07/17 22:00 Dose: 2 tab Tramadol HCl (Ultram) 50 mg PO Q8 PRN PRN Reason: pain 4-7 Last Admin: 08/08/17 14:05 Dose: 50 mg - Labs Labs: 08/08/17 10:20 08/08/17 10:20 PT 11.2 Seconds (9.8-13.1) 08/08/17 11:00 INR 1.1 (0.9-1.2) 08/08/17 11:00 APTT 33.8 Seconds (25.6-37.1) 08/03/17 13:34 - Head Exam Head Exam: ATRAUMATIC - ENT Exam ENT Exam: Mucous Membranes Dry - Respiratory Exam Respiratory Exam: NORMAL BREATHING PATTERN - Cardiovascular Exam Cardiovascular Exam: +S1, +S2 - GI/Abdominal Exam GI & Abdominal Exam: Normal Bowel Sounds - Extremities Exam Extremities Exam: Normal Inspection Assessment and Plan (1) DVT (deep venous thrombosis) Assessment & Plan: left transverse, sigmoid sinus thrombus left IJ thrombus on therapeutic anticoagulation coumadin with lovenox 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
[2017-08-08] MEDS: Docusate-Senna 50 mg-8.6 mg Tab PO SCH (21:22)
[2017-08-09] MEDS: Piperacillin/Tazobact 3.375 GM in Sodium Chloride 0.9% 100 ML IVPB SCH ×3 (01:05→10:02)
[2017-08-09] MEDS: Levothyroxine 150 MCG TAB PO SCH (06:34)
[2017-08-09] MEDS: Insulin Lispro (humaLOG) 100 Units/ml Inj SC SCH ×4 (06:36→22:14)
[2017-08-09] MEDS ORDERED: Potassium Chloride 20 mEq ER Tab PO ONE (09:15)
[2017-08-09] MEDS: Omega-3-Acid Ethyl Esters 1 GM Cap PO SCH ×2 (09:47→17:02)
[2017-08-09] MEDS: Pantoprazole 20 mg EC Tab PO SCH (09:48)
[2017-08-09] MEDS: Enoxaparin 80 mg Syringe SC SCH ×2 (09:49→22:16)
[2017-08-09] MEDS: CYANOCOBALAMIN 500 MCG TAB PO SCH (09:50)
[2017-08-09] MEDS: GlipiZIDE 5 mg SR Tab PO SCH (09:50)
[2017-08-09] MEDS ORDERED: Ergocalciferol 50,000 Intl Units Cap PO SCH (15:56)
[2017-08-09] MEDS: Docusate-Senna 50 mg-8.6 mg Tab PO SCH (22:16)
[2017-08-10] MEDS: Levothyroxine 150 MCG TAB PO SCH (06:01)
[2017-08-10] MEDS: Insulin Lispro (humaLOG) 100 Units/ml Inj SC SCH ×4 (06:51→21:35)
[2017-08-10 07:21] LABS: HEMATOCRIT 41.6 % (34.0-47.0); MEAN CORPUSCULAR HEMOGLOBIN 31.4 pg (27.0-31.0); MEAN CORPUSCULAR HGB CONC 33.4 g/dL (33.0-37.0); RED CELL DISTRIBUTION WIDTH 12.9 % (11.5-14.5); WHITE BLOOD COUNT 6.9 K/uL (4.8-10.8)
[2017-08-10 07:26] LABS: BLOOD UREA NITROGEN 12 mg/dl (7-17); CALCIUM 9.1 mg/dL (8.4-10.2); CARBON DIOXIDE 29 mmol/L (22-30); CHLORIDE 101 mmol/L (98-107); GFR AFRICAN-AMERICAN > 60; GLUCOSE,RANDOM 121 mg/dL (65-105); POTASSIUM 3.4 MMOL/L (3.6-5.0); SODIUM 141 mmol/l (132-148)
[2017-08-10] MEDS: GlipiZIDE 5 mg SR Tab PO SCH (09:26)
[2017-08-10] MEDS: Enoxaparin 80 mg Syringe SC SCH ×2 (09:27→21:38)
[2017-08-10] MEDS: Omega-3-Acid Ethyl Esters 1 GM Cap PO SCH ×2 (09:27→16:43)
[2017-08-10] MEDS: Pantoprazole 20 mg EC Tab PO SCH (09:27)
[2017-08-10] MEDS: CYANOCOBALAMIN 500 MCG TAB PO SCH (09:28)
--- NOTE | 2017-08-10 10:28 | CP.PCM.PN ---
Subjective - Date & Time of Evaluation Date of Evaluation: 08/10/17 Time of Evaluation: 09:45 - Subjective Subjective: No acute overnight events. Patient seen and examined with attending. Right sided ptosis slowly improving. Patient still has pain of right eye. She otherwise feels ok, no complaints offered. Dressing on patients back was just changed, she says it is still draining - clear. Denies pain of back. INR 1.8, will continue with coumadin dose of 7. repeat INR tomorrow. Objective - Vital Signs/Intake and Output Vital Signs (last 24 hours): Temp Pulse Resp BP Pulse Ox 98.1 F 62 18 152/76 H 96 08/10/17 09:00 08/10/17 09:28 08/10/17 09:00 08/10/17 09:28 08/10/17 09:00 - Medications Medications: Current Medications Acetaminophen (Tylenol 325mg Tab) 650 mg PO Q6 PRN PRN Reason: Pain, Mild (1-3) Last Admin: 08/06/17 12:26 Dose: 650 mg Amlodipine Besylate (Norvasc) 10 mg PO DAILY [facility] Last Admin: 08/10/17 09:27 Dose: 10 mg Aspirin (Ecotrin) 81 mg PO DAILY [facility] Last Admin: 08/10/17 09:26 Dose: 81 mg Atorvastatin Calcium (Lipitor) 80 mg PO DAILY [facility] Last Admin: 08/10/17 09:26 Dose: 80 mg Cephalexin Monohydrate (Keflex) 500 mg PO BID [facility] Last Admin: 08/10/17 09:26 Dose: 500 mg Cyanocobalamin (Vitamin B12) 500 mcg PO DAILY [facility] Last Admin: 08/10/17 09:28 Dose: 500 mcg Cyclobenzaprine HCl (Flexeril) 5 mg PO HS PRN PRN Reason: Muscle spasm Last Admin: 08/10/17 06:00 Dose: 5 mg Docusate Sodium (Colace) 100 mg PO BID [facility] Last Admin: 08/10/17 09:25 Dose: 100 mg Enoxaparin Sodium (Lovenox) 80 mg SC Q12 [facility] PRN Reason: Protocol Last Admin: 08/10/17 09:27 Dose: 80 mg Ergocalciferol (Drisdol 50,000 Intl Units Cap) 1 cap PO MO [facility] Last Admin: 08/09/17 17:04 Dose: 1 cap Glipizide (Glucotrol Xl) 5 mg PO DAILY [facility] Last Admin: 08/10/17 09:26 Dose: 5 mg Insulin Human Lispro (Humalog) 0 units SC [facility] PRN Reason: Protocol Last Admin: 08/10/17 06:51 Dose: 1 units Lactulose (Enulose) 30 gm PO DAILY PRN PRN Reason: Constipation Levothyroxine Sodium (Synthroid) 150 mcg PO DAILY@0630 [facility] Last Admin: 08/10/17 06:01 Dose: 150 mcg Lisinopril (Zestril) 40 mg PO DAILY [facility] Last Admin: 08/10/17 09:28 Dose: 40 mg Meclizine HCl (Antivert) 12.5 mg PO BID [facility] Last Admin: 08/10/17 09:25 Dose: 12.5 mg Metformin HCl (Glucophage) 1,000 mg PO BID [facility] Last Admin: 08/10/17 09:26 Dose: 1,000 mg Metoprolol Tartrate (Lopressor) 100 mg PO Q12H [facility] Last Admin: 08/10/17 04:45 Dose: 100 mg Vmiqo-6-Ckjz Ethyl Esters (Lovaza) 1 gm PO BID [facility] Last Admin: 08/10/17 09:27 Dose: 1 gm Ondansetron HCl (Zofran Inj) 4 mg IVP Q6 PRN PRN Reason: Nausea/Vomiting Last Admin: 08/09/17 09:11 Dose: 4 mg Oxycodone/Acetaminophen (Percocet 5/325 Mg Tab) 1 tab PO Q4 PRN PRN Reason: Pain, moderate (4-7) Stop: 08/10/17 20:11 Last Admin: 08/07/17 20:20 Dose: 1 tab Pantoprazole Sodium (Protonix Ec Tab) 20 mg PO DAILY [facility] Last Admin: 08/10/17 09:27 Dose: 20 mg Senna/Docusate Sodium (Senokot S 50 Mg-8.6 Mg) 2 tab PO HS [facility] Last Admin: 08/09/17 22:16 Dose: 2 tab Warfarin Sodium (Coumadin) 7 mg PO QD5 [facility] PRN Reason: Protocol Stop: 08/10/17 17:01 - Labs Labs: 08/10/17 06:20 08/10/17 06:20 PT 18.2 Seconds (9.8-13.1) H 08/10/17 07:15 INR 1.8 (0.9-1.2) H D 08/10/17 07:15 APTT 33.8 Seconds (25.6-37.1) 08/03/17 13:34 - Constitutional Appears: No Acute Distress - Head Exam Head Exam: ATRAUMATIC, NORMAL INSPECTION, NORMOCEPHALIC - Eye Exam Additional comments: ptosis of right eye, able to open a little - ENT Exam ENT Exam: Mucous Membranes Moist, Normal Exam - Respiratory Exam Respiratory Exam: NORMAL BREATHING PATTERN. absent: Accessory Muscle Use, Respiratory Distress, Stridor - Cardiovascular Exam Cardiovascular Exam: REGULAR RHYTHM, +S1, +S2. absent: Murmur - GI/Abdominal Exam GI & Abdominal Exam: Soft, Normal Bowel Sounds. absent: Distended, Guarding, Tenderness - Neurological Exam Neurological Exam: Alert, Awake, Normal Gait, Oriented x3 - Psychiatric Exam Psychiatric exam: Normal Affect, Normal Mood - Skin Skin Exam: Dry, Intact, Normal Color, Warm Additional comments: back wound not visualized, pt declined because dressing was just changed. 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 Status: Acute (2) Ptosis of eyelid, right Assessment & Plan: slowly improving Status: Acute (3) Monocular diplopia of right eye Assessment & Plan: slowly improving Status: Acute (4) Non-insulin dependent type 2 diabetes mellitus Assessment & Plan: controlled with home medications, low dose sliding scale Status: Chronic (5) Hypertension Assessment & Plan: improved control after addition of norvasc, continue metoprolol and lisinopril Status: Chronic (6) Hypothyroid Assessment & Plan: synthroid 150mcg Status: Chronic (7) Cellulitis Assessment & Plan: afebrile, no leukocytosis, on keflex Status: Acute (8) Sebaceous cyst Assessment & Plan: as above Status: Acute
[2017-08-10] MEDS: Docusate-Senna 50 mg-8.6 mg Tab PO SCH (21:38)
[2017-08-11 05:10] VITALS: O2SAT 99
[2017-08-11] MEDS: Levothyroxine 150 MCG TAB PO SCH (06:07)
[2017-08-11 08:21] VITALS: BP 114/61; RESP 20; TEMP 98.2
[2017-08-11] MEDS: GlipiZIDE 5 mg SR Tab PO SCH (09:26)
[2017-08-11] MEDS: Insulin Lispro (humaLOG) 100 Units/ml Inj SC SCH ×2 (09:27→12:16)
[2017-08-11] MEDS: Omega-3-Acid Ethyl Esters 1 GM Cap PO SCH (09:30)
[2017-08-11] MEDS: Enoxaparin 80 mg Syringe SC SCH (09:31)
[2017-08-11] MEDS: Pantoprazole 20 mg EC Tab PO SCH (09:33)
[2017-08-11] MEDS: CYANOCOBALAMIN 500 MCG TAB PO SCH (09:34)
[2017-08-11 09:36] VITALS: PULSE 62
--- NOTE | 2017-08-11 10:21 | CP.PCM.DIS ---
Provider - Provider Date of Admission: 08/03/17 14:18 Attending physician: Attila Enriquez MD Hospital Course - Lab Results Lab Results: Most Recent Lab Values WBC 6.9 K/uL (4.8-10.8) 08/10/17 06:20 RBC 4.43 Mil/uL (3.80-5.20) 08/10/17 06:20 Hgb 13.9 g/dL (12.0-16.0) 08/10/17 06:20 Hct 41.6 % (34.0-47.0) 08/10/17 06:20 MCV 94.0 fl (81.0-99.0) 08/10/17 06:20 MCH 31.4 pg (27.0-31.0) H 08/10/17 06:20 MCHC 33.4 g/dL (33.0-37.0) 08/10/17 06:20 RDW 12.9 % (11.5-14.5) 08/10/17 06:20 Plt Count 146 K/uL (130-400) 08/10/17 06:20 MPV 10.8 fl (7.2-11.7) 08/08/17 10:20 Neut % (Auto) 72.2 % (50.0-75.0) 08/08/17 10:20 Lymph % (Auto) 18.3 % (20.0-40.0) L 08/08/17 10:20 [place] % (Auto) 5.7 % (0.0-10.0) 08/08/17 10:20 Eos % (Auto) 2.7 % (0.0-4.0) 08/08/17 10:20 Baso % (Auto) 1.1 % (0.0-2.0) 08/08/17 10:20 Neut # 4.3 K/uL (1.8-7.0) 08/08/17 10:20 Lymph # 1.1 K/uL (1.0-4.3) 08/08/17 10:20 [place] # 0.3 K/uL (0.0-0.8) 08/08/17 10:20 Eos # 0.2 K/uL (0.0-0.7) 08/08/17 10:20 Baso # 0.1 K/uL (0.0-0.2) 08/08/17 10:20 PT 25.7 Seconds (9.8-13.1) H D 08/11/17 05:20 INR 2.5 (0.9-1.2) H D 08/11/17 05:20 APTT 33.8 Seconds (25.6-37.1) 08/03/17 13:34 Lupus Anticoagulant see note 08/04/17 08:30 LA PTT Screen 43 sec (<=40) H 08/04/17 08:30 dRVVT Mixing Study 32 sec (<=45) 08/04/17 08:30 dRVVT Mix Interpret Not indicated 08/04/17 08:30 Hexagonal Phase Confirm Negative (Negative) 08/04/17 08:30 Protein C Activity 192 % (70-180) H 08/04/17 08:30 Protein S Activity 123 % (60-140) 08/04/17 08:30 Antithrombin III Activ 117 % activity (80-120) 08/04/17 08:30 Factor V see note 08/04/17 08:30 Sodium 141 mmol/l (132-148) 08/10/17 06:20 Potassium 3.4 MMOL/L (3.6-5.0) L 08/10/17 06:20 Chloride 101 mmol/L (98-107) 08/10/17 06:20 Carbon Dioxide 29 mmol/L (22-30) 08/10/17 06:20 Anion Gap 14 (10-20) 08/10/17 06:20 BUN 12 mg/dl (7-17) 08/10/17 06:20 Creatinine 0.7 mg/dL (0.7-1.2) 08/10/17 06:20 Est GFR ( Amer) > 60 08/10/17 06:20 Est GFR (Non-Af Amer) > 60 08/10/17 06:20 POC Glucose (mg/dL) 172 mg/dL (65-110) H 08/11/17 05:56 Random Glucose 121 mg/dL (65-105) H 08/10/17 06:20 Hemoglobin A1c 7.0 % (4.2-6.5) H 08/03/17 12:00 Calcium 9.1 mg/dL (8.4-10.2) 08/10/17 06:20 Total Bilirubin 1.5 mg/dl (0.2-1.3) H 08/08/17 10:20 AST 55 U/L (14-36) H D 08/08/17 10:20 ALT 51 U/L (9-52) 08/08/17 10:20 Alkaline Phosphatase 140 U/L (38-126) H D 08/08/17 10:20 Troponin I < 0.0120 ng/mL (0.00-0.120) 08/03/17 13:34 Total Protein 7.4 G/DL (6.3-8.2) 08/08/17 10:20 Albumin 4.1 g/dL (3.5-5.0) 08/08/17 10:20 Globulin 3.3 gm/dL (2.2-3.9) 08/08/17 10:20 Albumin/Globulin Ratio 1.2 (1.0-2.1) 08/08/17 10:20 Triglycerides 143 mg/DL (0-149) 08/03/17 13:34 Cholesterol 232 mg/dL (0-199) H 08/03/17 13:34 LDL Cholesterol Direct 137 mg/dL (0-129) H 08/03/17 13:34 HDL Cholesterol 50 MG/DL (30-70) 08/03/17 13:34 [id number] Ab <9 JANE (<=20) 08/04/17 08:30 Beta-2 GPI IgG Ab <9 SGU (<=20) 08/04/17 08:30 Beta-2 GPI IgM Ab 14 SMU (<=20) 08/04/17 08:30 Phosphatidylserine IgG <10 U/mL (<10) 08/04/17 08:30 Phosphatidylserine IgA <20 U/mL (<20) 08/04/17 08:30 Phosphatidylserine IgM <25 U/mL (<25) 08/04/17 08:30 Anti-Phospholipid Intrp see note 08/04/17 08:30 Anti-Cardiolipin IgG Ab <14 GPL (<=14) 08/04/17 08:30 Anti-Cardiolipin IgA Ab <11 APL (<=11) 08/04/17 08:30 Anti-Cardiolipin IgM Ab <12 MPL (<=12) 08/04/17 08:30 Prothrombin Mut Interp see note 08/04/17 08:30 Prothrombin Gene Mutate see note 08/04/17 08:30 Prothromb Gene Review see note 08/04/17 08:30 Blood Type AB POSITIVE 08/03/17 13:28 Antibody Screen Negative 08/03/17 13:28 BBK History Checked No verified bt 08/03/17 13:28 - Hospital Course Hospital Course: This is a 57 y/o female 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 She presented with intractable headaches and ptosis right. Discharge Exam - Head Exam Head Exam: ATRAUMATIC, NORMAL INSPECTION, NORMOCEPHALIC Discharge Plan - Follow Up Plan Condition: FAIR Disposition: HOME/ ROUTINE Instructions: Warfarin (By mouth), Meal Planning with Diabetes Exchanges (GEN)
--- NOTE | 2017-08-11 11:21 | CP.PCM.PCO ---
Assessment & Plan - Assessment and Plan (Free Text) Assessment: patient seen and examined with doing well; sitting oob to chair denies sob, cp, dizziness, weakness, fever or chills PT/INE 2.[address] Salma Enriquez cont. coumadin 7 mg po daily x 7 days pt. has an appointment Wednesday with for Pt/INR bloodwork Patient prefers meds to be sent to [facility] All meds e rx to [facility] pt. to recieve coumadin 7 mg po prior to discharge cleared for discharge to Home today by
== END 2017-08-11 13:24 | disposition home or self-care (01) | DRG 18 ==
LOC: H.ER 12:49 → H.ERHOLD 14:18 → H.TEL 16:59
PROVIDERS: ADMIT Family Medicine; ATTEND Family Medicine
DX: E11.41 Type 2 diabetes mellitus with diabetic mononeuropathy (principal); I82.C12 Acute embolism and thrombosis of left internal jugular vein; H49.01 Third [oculomotor] nerve palsy, right eye; I10 Essential (primary) hypertension; L03.312 Cellulitis of back [any part except buttock and flank]; E11.65 Type 2 diabetes mellitus with hyperglycemia; E03.9 Hypothyroidism, unspecified; E78.5 Hyperlipidemia, unspecified; K59.00 Constipation, unspecified; Z86.73 Personal history of transient ischemic attack (TIA), and cerebral infarction without residual deficits; L72.3 Sebaceous cyst

== ENCOUNTER 2018-03-01 11:40 | Observation (INO) | payer BC, OTHER, SELFPAY ==
[2018-03-01 12:31] LABS: BASO # 0.2 K/uL (0.0-0.2); BASO % 1.5 % (0.0-2.0); EOS # 0.3 K/uL (0.0-0.7); EOS % 2.4 % (0.0-4.0); HEMOGLOBIN 15.1 g/dL (12.0-16.0); LYMPH % 7.9 % (20.0-40.0); MEAN CELL VOLUME 95.4 fl (81.0-99.0); MEAN CORPUSCULAR HEMOGLOBIN 31.9 pg (27.0-31.0); MEAN CORPUSCULAR HGB CONC 33.5 g/dL (33.0-37.0); MEAN PLATELET VOLUME 10.7 fl (7.2-11.7); MONO # 0.4 K/uL (0.0-0.8); MONO % 3.3 % (0.0-10.0); NEUT % 84.9 % (50.0-75.0); PLATELET COUNT 177 K/uL (130-400); RBC 4.72 Mil/uL (3.80-5.20); RED CELL DISTRIBUTION WIDTH 13.2 % (11.5-14.5); WHITE BLOOD COUNT 12.9 K/uL (4.8-10.8)
[2018-03-01 12:43] LABS: ALB/GLOB RATIO 1.1 (1.0-2.1); ALBUMIN 4.3 g/dL (3.5-5.0); ALT/SGPT 70 U/L (9-52); AST/SGOT 53 U/L (14-36); BLOOD UREA NITROGEN 19 mg/dl (7-17); CALCIUM 9.6 mg/dL (8.4-10.2); GFR AFRICAN-AMERICAN > 60; GFR NON-AFRICAN AMERICAN > 60
[2018-03-01 12:47] LABS: INR 0.9 (0.9-1.2); PARTIAL THROMBOPLASTIN TIME 37.7 Seconds (25.6-37.1); PROTHROMBIN TIME 10.4 Seconds (9.8-13.1)
[2018-03-01] MEDS ORDERED: Iodixanol 320 MG/ML 100 ML BOTTLE IV ONE (12:57)
[2018-03-01] MEDS ORDERED: Sodium Chloride 0.9% 100 ML ONE (12:57)
--- NOTE | 2018-03-01 13:14 | RAD ---
PROCEDURE: CHEST RADIOGRAPH, 1 VIEW HISTORY: chest pain COMPARISON: 08/03/2017. FINDINGS: LUNGS: The lungs are well inflated and clear. PLEURA: No pneumothorax or pleural fluid seen. CARDIOVASCULAR: Normal. OSSEOUS STRUCTURES: No significant abnormalities. VISUALIZED UPPER ABDOMEN: Normal. OTHER FINDINGS: None. IMPRESSION: No active pulmonary disease.
--- NOTE | 2018-03-01 13:53 | CT ---
PROCEDURE: CT Chest with contrast (Pulmonary Angiogram) HISTORY: chest pain r/o PE COMPARISON: None available. TECHNIQUE: Axial computed tomography images were obtained of the chest in the pulmonary arterial phase of enhancement. Coronal and sagittal reformatted images were created and reviewed. Intravenous contrast dose: 99 cc Visipaque 320 Mean Hounsfield unit values in the main pulmonary artery: 313.56 Radiation dose: Total exam DLP = 380.73 mGy-cm. This CT exam was performed using one or more of the following dose reduction techniques: Automated exposure control, adjustment of the mA and/or kV according to patient size, and/or use of iterative reconstruction technique. FINDINGS: PULMONARY ARTERIES: Unremarkable. No pulmonary embolism. AORTA: No acute findings. No thoracic aortic aneurysm. LUNGS: Unremarkable. No nodule, mass or pulmonary consolidation. PLEURAL SPACES: Unremarkable. No effusion or pneuomothorax. HEART: No radiographic findings to suggest acute or significant cardiovascular disease.Trace pericardial effusion. LYMPH NODES: No lymphadenopathy. BONES, CHEST WALL: Unremarkable. No fracture or destructive lesion OTHER FINDINGS: Unremarkable. IMPRESSION: Unremarkable CT pulmonary angiogram. No pulmonary embolus.
[2018-03-01 14:29] LABS: BANDS 2 % (0-2); BASOPHIL 1 % (0-2); EOSINOPHIL 3 % (0-7); LYMPHOCYTE 7 % (20-50); MONOCYTE 7 % (0-10); MYELOCYTE 1 % (0-0); NEUTROPHIL 79 % (42-75); TOTAL CELLS COUNTED 100
[2018-03-01 14:30] LABS: PLATELET ESTIMATE NORMAL (NORMAL)
--- NOTE | 2018-03-01 14:53 | ED PDOC ---
HPI: Chest Pain Time Seen by Provider: 03/01/18 12:09 Chief Complaint (Nursing): Chest Pain Chief Complaint (Provider): Chest Pain History Per: Patient History/Exam Limitations: no limitations Onset/Duration Of Symptoms: Days (x1) Current Symptoms Are (Timing): Still Present Additional Complaint(s): 57 year old female with medical history of diabetes, hypertension and hypercholesterolemia, presents to the emergency department with a complaint of left-sided chest pain ongoing since this morning. She denied any cough, shortness of breath, nausea, vomiting or abdominal pain. Patient stated that she is currently taking Eliquis for prior blood clots but has not had any cardiac work-up recently. PMD: Attila Enriquez MD Past Medical History Reviewed: Historical Data, Nursing Documentation, Vital Signs Vital Signs: Last Vital Signs Temp 97.9 F 03/01/18 16:02 Pulse 76 03/01/18 16:02 Resp 12 03/01/18 16:02 BP 158/88 H 03/01/18 16:02 Pulse Ox 98 03/01/18 16:02 - Medical History PMH: Diabetes, HTN, Hypercholesterolemia, Hypothyroidism, TIA Denies: HIV, Chronic Kidney Disease - Surgical History Surgical History: Cholecystectomy - Family History Family History: States: Unknown Family Hx, Diabetes, Hypertension - Social History Current smoker - smoking cessation education provided: No Ex-Smoker (has not smoked in the last 12 months): No Alcohol: None Drugs: Denies - Home Medications Home Medications: Ambulatory Orders Medication Instructions Recorded Canagliflozin/Metformin HCl 1 tab PO BID 08/03/17 [Invokamet 150-1,000 mg Tablet] Ergocalciferol (Vitamin D2) 50,000 unit PO MO 08/03/17 [Vitamin D2] Glipizide [Glipizide ER] 5 mg PO BID 08/03/17 Lisinopril [Zestril] 40 mg PO DAILY 08/03/17 Metoprolol Tartrate [Lopressor] 100 mg PO Q12 08/03/17 Apixaban [Eliquis] 5 mg PO Q12 03/01/18 Atorvastatin [Lipitor] 20 mg PO DAILY 03/01/18 Cyanocobalamin [Vitamin B12 100 250 mcg PO DAILY 03/01/18 mcg Tab] Icosapent Ethyl [Vascepa] 1 gm PO Q12 03/01/18 LORazepam [Ativan] 1 mg PO HS PRN 03/01/18 Levothyroxine [Synthroid] 200 mcg PO DAILY 03/01/18 Liraglutide [Victoza 2-Humberto] 1.8 mg SC DAILY 03/01/18 Polymyxin/Trimethoprim Sulfate 1 drop RIGHTEYE Q8 03/01/18 [Polytrim Ophth Soln] PrednisoLONE 1% [Pred Forte 1% 1 drop RIGHTEYE Q8 03/01/18 Opht Susp] traMADol [Ultram] 50 mg PO Q12 PRN 03/01/18 - Allergies Allergies/Adverse Reactions: Allergies Allergy/AdvReac Type Severity Reaction Status Date / Time No Known Allergies Allergy Verified 03/01/18 11:54 Review of Systems ROS Statement: Except As Marked, All Systems Reviewed And Found Negative Cardiovascular: Positive for: Chest Pain (left-sided) Respiratory: Negative for: Cough, Shortness of Breath Gastrointestinal: Negative for: Nausea, Vomiting, Abdominal Pain Physical Exam - Reviewed Nursing Documentation Reviewed: Yes Vital Signs Reviewed: Yes - Physical Exam Appears: Positive for: Non-toxic, No Acute Distress Head Exam: Positive for: ATRAUMATIC, NORMAL INSPECTION, NORMOCEPHALIC Skin: Positive for: Normal Color Eye Exam: Positive for: Normal appearance, EOMI, PERRL ENT: Positive for: Normal ENT Inspection Neck: Positive for: Normal Cardiovascular/Chest: Positive for: Regular Rate, Rhythm, Chest Non Tender Respiratory: Positive for: Normal Breath Sounds. Negative for: Decreased Breath Sounds, Respiratory Distress Gastrointestinal/Abdominal: Positive for: Normal Exam, Soft. Negative for: Tenderness Extremity: Positive for: Normal ROM (upper/lower). Negative for: Pedal Edema ( bilateral), Calf Tenderness (bilateral) Neurologic/Psych: Positive for: Alert, Oriented. Negative for: Motor/Sensory Deficits - Laboratory Results Result Diagrams: 03/01/18 11:50 03/01/18 11:50 - ECG O2 Sat by Pulse Oximetry: 100 (RA) Pulse Ox Interpretation: Normal Medical Decision Making Medical Decision Making: Initial Impression: Chest pain Initial Plan: * CTA chest * EKG * CMP * Troponin I * CBC * PTT * PT * CXR * Aspirin 325mg PO Time: 1145 --EKG: NSR at 95 BMP. Normal axis with regular rhythm. Time: 1315 --Discussed case with Dr. Enriquez who will admit patient to telemetry unit. Requested consult with Dr. Zelda Winchester, caser. Time: 1352 --CTA chest FINDINGS: PULMONARY ARTERIES: Unremarkable. No pulmonary embolism. AORTA: No acute findings. No thoracic aortic aneurysm. LUNGS: Unremarkable. No nodule, mass or pulmonary consolidation. PLEURAL SPACES: Unremarkable. No effusion or pneuomothorax. HEART: No radiographic findings to suggest acute or significant cardiovascular disease.Trace pericardial effusion. LYMPH NODES: No lymphadenopathy. BONES, CHEST WALL: Unremarkable. No fracture or destructive lesion OTHER FINDINGS: Unremarkable. IMPRESSION: Unremarkable CT pulmonary angiogram. No pulmonary embolus. Scribe Attestation: Documented by Analia Callahan, acting as a scribe for Nadeem Cardozo DO. Provider Scribe Attestation: All medical record entries made by the Scribe were at my direction and personally dictated by me. I have reviewed the chart and agree that the record accurately reflects my personal performance of the history, physical exam, medical decision making, and the department course for this patient. I have also personally directed, reviewed, and agree with the discharge instructions and disposition. Disposition - Clinical Impression Clinical Impression: Chest pain - Disposition Disposition Time: 13:55 Condition: STABLE
--- NOTE | 2018-03-01 18:11 | CP.PCM.CON ---
History of Present Illness - History of Present Illness History of Present Illness: I was asked to evaluate patient by Dr Enriquez Patient is a 57 year old female with PMH HTN, hypercholesterolemia, DM who presents with chest pain. She states symptoms began one day ago, and was noted to have left sided pain with rest. She had associated dyspnea. Symptoms were recurrent and therefore she presented to [facility]. Review of Systems - Constitutional Constitutional: absent: As Per HPI, Anorexia, Chills, Daytime Sleepiness, Excessive Sweating, Fatigue, Fever, Frequent Falls, Headache, Increased Appetite , Lethargy, Malaise, Night Sweats, Snoring, Sleep Apnea, Weight Gain, Weight Loss, Weakness, Other - EENT Eyes: absent: As Per HPI, Blind Spots, Blurred Vision, Change in Vision, Decreased Night Vision, Diplopia, Discharge, Dry Eye, Exophthalmos, Floaters, Irritation, Itchy Eyes, Loss of Peripheral Vision, Pain, Photophobia, Requires Corrective Lenses, Sees Flashes, Spots in Vision, Tunnel Vision, Other Visual Disturbances, Loss of Vision, Other Ears: absent: As Per HPI, Decreased Hearing, Ear Discharge, Ear Pain, Tinnitus, Abnormal Hearing, Disequilibrium, Dizziness, Other Nose/Mouth/Throat: absent: As Per HPI, Epistaxis, Nasal Congestion, Nasal Discharge, Nasal Obstruction, Nasal Trauma, Nose Pain, Post Nasal Drip, Sinus Pain, Sinus Pressure, Bleeding Gums, Change in Voice, Dental Pain, Dry Mouth, Dysphagia, Halitosis, Hoarsness, Lip Swelling, Mouth Lesions, Mouth Pain, Odynophagia, Sore Throat, Throat Swelling, Tongue Swelling, Facial Pain, Neck Pain, Neck Mass, Other - Cardiovascular Cardiovascular: Chest Pain at Rest - Respiratory Respiratory: absent: As Per HPI, Cough, Dyspnea, Hemoptysis, Dyspnea on Exertion , Wheezing, Snoring, Stridor, Pain on Inspiration, Chest Congestion, Excessive Mucous Production, Change in Mucous Color, Pain with Coughing, Other - Gastrointestinal Gastrointestinal: absent: As Per HPI, Abdominal Pain, Belching, Bloating, Change in Bowel Habits, Change in Stool Character, Coffee Ground Emesis, Constipation, Cramping, Diarrhea, Dyspepsia, Dysphagia, Early Satiety, Excessive Flatus, Fecal Incontinence, Heartburn, Hematemesis, Hematochezia, Loose Stools, Melena, Nausea, Odynophagia, Temesmus, Vomiting, Other - Genitourinary Genitourinary: absent: As Per HPI, Change in Urinary Stream, Difficulty Urinating, Dysuria, Flank Pain, Hematuria, Pyuria, Nocturia, Urinary Incontinence, Urinary Frequency, Urinary Hesitance, Urinary Urgency, Voiding Freq/Small Amts, Freq UTI, Hx Renal/Bladder Calculi, Hx /Renal Surgery, Bladder Distension, Other - Musculoskeletal Musculoskeletal: absent: As Per HPI, Abnormal Gait, Arthralgias, Atrophy, Back Pain, Deformity, Joint Swelling, Limited Range of Motion, Loss of Height, Muscle Cramps, Muscle Weakness, Myalgias, Neck Pain, Numbness, Radiating Pain into Limb, Stiffness, Tingling, Other - Integumentary Integumentary: absent: As Per HPI, Acne, Alopecia, Bleeding Lesions, Change in Hair, Change in Nails, Change in Pigmentation, Changing Lesions, Dry Skin, Erythema, Furuncle, Hirsutism, Lesions, New Lesions, Non-Healing Lesions, Photosensitivity, Pruritus, Rash, Skin Pain, Skin Ulcer, Sores, Striae, Swelling , Unusual Bruising, Wounds, Jaundice, Other - Neurological Neurological: absent: As Per HPI, Abnormal Gait, Abnormal Hearing, Abnormal Movements, Abnormal Speech, Behavioral Changes, Burning Sensations, Confusion, Convulsions, Disequilibrium, Dizziness, Numbness, Focal Weakness, Frequent Falls , Headaches, Lack of Coordination, Loss of Vision, Memory Loss, Paresthesias, Radicular Pain, Restless Legs, Sensory Deficit, Syncope, Tingling, Tremor, Vertigo, Weakness, Other Visual Disturbances, Other - Psychiatric Psychiatric: absent: As Per HPI, Abnormal Sleep Pattern, Anhedonia, Anxiety, Auditory Hallucinations, Behavioral Changes, Change in Appetite, Change in Libido, Confusion, Depression, Difficulty Concentrating, Hallucinations, Homicidal Ideation, Hopelessness, Irritability, Memory Loss, Mood Swings, Panic Attacks, Paranoia, Suicidal Ideation, Visual Hallucinations, Tactile Hallucinations, Other - Endocrine Endocrine: absent: As Per HPI, Change in Body Appearance, Change in Libido, Cold Intolorance, Deepening of Voice, Excessive Sweating, Fatigue, Flushing, Heat Intolorance, Increase in Ring/Shoe/Hat Size, Palpitations, Polydipsia, Polyphagia, Polyuria, Other - Hematologic/Lymphatic Hematologic: absent: As Per HPI, Easy Bleeding, Easy Bruising, Lymphadenopathy, Other Past Patient History - Past Medical History & Family History Past Medical History?: Yes - Past Social History Alcohol: None Drugs: Denies - CARDIAC Hx Hypercholesterolemia: Yes Hx Hypertension: Yes - PULMONARY Hx Respiratory Disorders: No - NEUROLOGICAL Hx Transient Ischemic Attacks (TIA): Yes - HEENT Hx HEENT Problems: No Hx Glaucoma: Yes (Rt eye surgery) - RENAL Hx Chronic Kidney Disease: No - ENDOCRINE/METABOLIC Hx Hypothyroidism: Yes - HEMATOLOGICAL/ONCOLOGICAL Hx Human Immunodeficiency Virus (HIV): No - INTEGUMENTARY Hx Dermatological Problems: No - MUSCULOSKELETAL/RHEUMATOLOGICAL Hx Musculoskeletal Disorders: Yes Hx Falls: No Hx Herniated Disk: Yes (lumbar laminectomy 2017) - GASTROINTESTINAL Hx Gastrointestinal Disorders: No - GENITOURINARY/GYNECOLOGICAL Hx Genitourinary Disorders: No - PSYCHIATRIC Hx Psychophysiologic Disorder: No Hx Substance Use: No - SURGICAL HISTORY Hx Cholecystectomy: Yes - ANESTHESIA Hx Anesthesia: Yes Hx Anesthesia Reactions: No Hx Malignant Hyperthermia: No Meds Allergies/Adverse Reactions: Allergies Allergy/AdvReac Type Severity Reaction Status Date / Time No Known Allergies Allergy Verified 03/01/18 11:54 Physical Exam - Constitutional Appears: Non-toxic - Head Exam Head Exam: NORMAL INSPECTION - Eye Exam Eye Exam: Normal appearance - ENT Exam ENT Exam: Mucous Membranes Moist - Neck Exam Neck exam: Positive for: Normal Inspection - Respiratory Exam Respiratory Exam: NORMAL BREATHING PATTERN - Cardiovascular Exam Cardiovascular Exam: REGULAR RHYTHM - GI/Abdominal Exam GI & Abdominal Exam: Normal Bowel Sounds - Rectal Exam Rectal Exam: Deferred - Extremities Exam Extremities exam: Negative for: pedal edema - Back Exam Back exam: NORMAL INSPECTION - Neurological Exam Neurological exam: Alert, Oriented x3 - Psychiatric Exam Psychiatric exam: Normal Affect - Skin Skin Exam: Normal Color Results - Vital Signs Recent Vital Signs: Last Vital Signs Temp 97.9 F 03/01/18 16:02 Pulse 76 03/01/18 16:02 Resp 12 03/01/18 16:02 BP 158/88 H 03/01/18 16:02 Pulse Ox 100 03/01/18 16:51 - Labs Result Diagrams: 03/01/18 11:50 03/01/18 11:50 Labs: Laboratory Results - last 24 hr 03/01/18 03/01/18 03/01/18 11:50 11:50 11:50 WBC 12.9 H D RBC 4.72 Hgb 15.1 Hct 45.1 MCV 95.4 MCH 31.9 H MCHC 33.5 RDW 13.2 Plt Count 177 MPV 10.7 Neut % (Auto) 84.9 H Lymph % (Auto) 7.9 L [place] % (Auto) 3.3 Eos % (Auto) 2.4 Baso % (Auto) 1.5 Neut # (Auto) 11.0 H Lymph # (Auto) 1.0 [place] # (Auto) 0.4 Eos # (Auto) 0.3 Baso # (Auto) 0.2 Neutrophils % (Manual) 79 H Band Neutrophils % 2 Lymphocytes % (Manual) 7 L Monocytes % (Manual) 7 Eosinophils % (Manual) 3 Basophils % (Manual) 1 Myelocytes % 1 H Platelet Estimate Normal RBC Morphology Normal PT 10.4 INR 0.9 APTT 37.7 H Sodium 144 Potassium 3.9 Chloride 104 Carbon Dioxide 26 Anion Gap 18 BUN 19 H Creatinine 0.7 Est GFR ( Amer) > 60 Est GFR (Non-Af Amer) > 60 Random Glucose 219 H Calcium 9.6 Total Bilirubin 1.7 H AST 53 H ALT 70 H Alkaline Phosphatase 141 H Troponin I < 0.0120 Total Protein 8.1 Albumin 4.3 Globulin 3.8 Albumin/Globulin Ratio 1.1 - EKG Data EKG Interpreted by: Myself EKG shows normal: Sinus rhythm Assessment & Plan (1) Chest pain Assessment and Plan: patient has no current chest pain. The patient has risk factors for CAD. recommend stress test. Status: Acute (2) Hypertension Assessment and Plan: blood pressure control Status: Acute (3) Non-insulin dependent type 2 diabetes mellitus Assessment and Plan: risk factor for CAD Status: Chronic
[2018-03-02] MEDS ORDERED: PrednisoLONE 1% OPTH SUSP OD SCH (01:00)
[2018-03-02] MEDS ORDERED: Polymyxin/Trimethoprim Ophth Soln OD SCH (01:00)
[2018-03-02] MEDS ORDERED: Levothyroxine 200 MCG TAB PO SCH (06:30)
[2018-03-02] MEDS ORDERED: CYANOCOBALAMIN (VITAMIN B-12) 250 MCG TABLET PO SCH (09:00)
[2018-03-02] MEDS ORDERED: Omega-3-Acid Ethyl Esters 1 GM Cap PO SCH (09:00)
[2018-03-02] MEDS ORDERED: METFORMIN HCL PO SCH (09:00)
[2018-03-02] MEDS ORDERED: CANAGLIFLOZIN PO SCH (09:00)
[2018-03-02] MEDS ORDERED: CYANOCOBALAMIN 250 MCG PO SCH (09:00)
[2018-03-02] MEDS ORDERED: Aminophylline 25 mg/ml Inj ONE (09:30)
[2018-03-02] MEDS: GlipiZIDE 5 mg SR Tab PO SCH ×2 (11:34→16:33)
[2018-03-02] MEDS: Polymyxin/Trimethoprim Ophth Soln OD SCH ×2 (11:35→16:33)
--- NOTE | 2018-03-02 11:36 | CARD ---
APPROVED REPORT EKG Measurement Heart [id number] <Conclusion> Normal sinus rhythm Nonspecific ST and T wave abnormality Abnormal ECG
[2018-03-02] MEDS: PrednisoLONE 1% OPTH SUSP OD SCH ×2 (11:37→16:33)
[2018-03-02 11:58] VITALS: RESP 20
--- NOTE | 2018-03-02 15:29 | CP.PCM.HP ---
<Chepe Norman - Last Filed: 03/02/18 15:22> History of Present Illness - History of Present Illness History of Present Illness: CC: chest pain HPI: 57 y/o woman w/ pmh of HTN, hypothyroidism, and NIDDM presented to ED w/ left sided chest pain. Patient reported chest pain was left sided, started in the morning, never happened before, pressure/squeezing in nature, non-radiating , not relieved by anything. Patient adherent to DM2 and HTN medication. Patient taking eliquis for previous TIA. Patient in Tele and currently has no complaints. The patient denies headaches, chest pain, SOB, abdominal pain, nausea, vomiting, diarrhea, dysuria, or fever. PMD: Dr. Enriquez PMH: HTN, NIDDM, Hypothyroidism Medications: see med list Allergies: NKDA PSH: cholecystectomy Fam: unknown family Hx of DM2, HTN Social: denies smoking, alcohol, and drugs ROS: 12 points assessed and negative unless otherwise reported in HPI Present on Admission - Present on Admission Any Indicators Present on Admission: No History of DVT/PE: No History of Uncontrolled Diabetes: No Urinary Catheter: No Decubitus Ulcer Present: No Review of Systems - Review of Systems All systems: reviewed and no additional remarkable complaints except - Constitutional Constitutional: absent: Chills, Fever - EENT Eyes: absent: Change in Vision - Cardiovascular Cardiovascular: As Per HPI, Chest Pain. absent: Palpitations, Pedal Edema, Radiating Pain - Respiratory Respiratory: absent: Dyspnea - Gastrointestinal Gastrointestinal: absent: Abdominal Pain, Diarrhea, Nausea, Vomiting - Genitourinary Genitourinary: absent: Dysuria - Integumentary Integumentary: absent: Rash Past Patient History - Past Medical History & Family History Past Medical History?: Yes - Past Social History Smoking Status: Never Smoked - CARDIAC Hx Hypercholesterolemia: Yes Hx Hypertension: Yes - PULMONARY Hx Respiratory Disorders: No - NEUROLOGICAL Hx Transient Ischemic Attacks (TIA): Yes - HEENT Hx Glaucoma: Yes (Rt eye) - RENAL Hx Chronic Kidney Disease: No - ENDOCRINE/METABOLIC Hx Diabetes Mellitus Type 2: Yes Hx Hypothyroidism: Yes - HEMATOLOGICAL/ONCOLOGICAL Hx AIDS: No Hx Human Immunodeficiency Virus (HIV): No - INTEGUMENTARY Hx Dermatological Problems: No - MUSCULOSKELETAL/RHEUMATOLOGICAL Hx Musculoskeletal Disorders: Yes Hx Falls: No Hx Herniated Disk: Yes - GASTROINTESTINAL Hx Gastrointestinal Disorders: No - GENITOURINARY/GYNECOLOGICAL Hx Genitourinary Disorders: No - PSYCHIATRIC Hx Psychophysiologic Disorder: No Hx Substance Use: No - SURGICAL HISTORY Hx Cholecystectomy: Yes - ANESTHESIA Hx Anesthesia: Yes Hx Anesthesia Reactions: No Hx Malignant Hyperthermia: No Has any member of the family had a problem w/ anesthesia?: No Meds Allergies/Adverse Reactions: Allergies Allergy/AdvReac Type Severity Reaction Status Date / Time No Known Allergies Allergy Verified 03/01/18 11:54 Physical Exam - Constitutional Appears: Non-toxic, No Acute Distress - Head Exam Head Exam: ATRAUMATIC, NORMAL INSPECTION, NORMOCEPHALIC - Eye Exam Eye Exam: Normal appearance - ENT Exam ENT Exam: Mucous Membranes Moist - Neck Exam Neck exam: Positive for: Full Rom. Negative for: Tenderness - Respiratory Exam Respiratory Exam: Clear to Auscultation Bilateral. absent: Accessory Muscle Use , Decreased Breath Sounds, Rales, Rhonchi, Wheezes, Respiratory Distress - Cardiovascular Exam Cardiovascular Exam: REGULAR RHYTHM. absent: Tachycardia - GI/Abdominal Exam GI & Abdominal Exam: Normal Bowel Sounds, Soft. absent: Distended, Tenderness - Extremities Exam Extremities exam: Positive for: normal inspection. Negative for: calf tenderness, pedal edema, tenderness - Neurological Exam Neurological exam: Alert, Oriented x3 - Skin Skin Exam: Dry, Intact, Normal Color, Warm Results - Vital Signs Recent Vital Signs: Last Vital Signs Temp 98.6 F 03/02/18 13:42 Pulse 80 03/02/18 13:42 Resp 20 03/02/18 11:57 BP 161/89 H 03/02/18 13:42 Pulse Ox 99 03/02/18 11:57 - Labs Result Diagrams: 03/01/18 11:50 03/01/18 11:50 Labs: Laboratory Results - last 24 hr 03/01/18 03/01/18 03/02/18 23:01 23:10 08:30 POC Glucose (mg/dL) 236 H Troponin I < 0.0120 < 0.0120 03/02/18 11:18 POC Glucose (mg/dL) 224 H Troponin I Assessment & Plan (1) Chest pain Status: Acute (2) Diabetes mellitus Status: Chronic (3) Hypertension Status: Chronic (4) Hypothyroid Status: Chronic - Assessment and Plan (Free Text) Plan: c/w present management cardiology recommendations appreciated troponins <0.0120 x2 f/u chemical stress test report c/w eliquis for anticoagulation c/w home medications monitor for acute changes <Attila Enriquez - Last Filed: 03/03/18 21:43> Results - Vital Signs Recent Vital Signs: Last Vital Signs Temp 98.2 F 03/02/18 16:13 Pulse 73 03/02/18 16:13 Resp 20 03/02/18 16:13 BP 149/77 03/02/18 16:13 Pulse Ox 95 03/02/18 16:13 - Labs Result Diagrams: 03/01/18 11:50 03/01/18 11:50 Assessment & Plan - Assessment and Plan (Free Text) Plan: I was present during evaluation and discussed with Dr Emerson connor plans of care and tx will discharge patient after stress test. attila Enriquez M.d.
[2018-03-02 16:14] VITALS: BP 149/77; PULSE 73; TEMP 98.2; O2SAT 95
--- NOTE | 2018-03-02 17:24 | CP.PCM.PN ---
Subjective - Date & Time of Evaluation Date of Evaluation: 03/02/18 Time of Evaluation: 17:20 - Subjective Subjective: patient denies chest pain or dyspnea. Objective - Vital Signs/Intake and Output Vital Signs (last 24 hours): Temp Pulse Resp BP Pulse Ox 98.2 F 73 20 149/77 95 03/02/18 16:13 03/02/18 16:13 03/02/18 16:13 03/02/18 16:13 03/02/18 16:13 - Medications Medications: Current Medications Apixaban (Eliquis) 5 mg PO Q12 [facility] PRN Reason: Protocol Last Admin: 03/02/18 11:34 Dose: 5 mg Atorvastatin Calcium (Lipitor) 20 mg PO DAILY [facility] Last Admin: 03/02/18 11:34 Dose: 20 mg Cyanocobalamin (Vitamin B-12) 250 mcg PO DAILY [facility] Last Admin: 03/02/18 11:35 Dose: 250 mcg Ergocalciferol (Drisdol 50,000 Intl Units Cap) 1 cap PO MO [facility] Glipizide (Glucotrol Xl) 5 mg PO BID [facility] Last Admin: 03/02/18 16:33 Dose: 5 mg Home Med (Canagliflozin/Metformin Hcl [Invokamet 150-1,000 Mg Tablet]) 1 tab PO BID [facility] Home Med (Liraglutide [Victoza 2-Humberto]) 1.8 mg SC DAILY [facility] Levothyroxine Sodium (Synthroid) 200 mcg PO DAILY@0630 [facility] Last Admin: 03/02/18 05:46 Dose: 200 mcg Lisinopril (Zestril) 40 mg PO DAILY [facility] Last Admin: 03/02/18 11:36 Dose: 40 mg Lorazepam (Ativan) 1 mg PO HS PRN PRN Reason: Anxiety Metoprolol Tartrate (Lopressor) 100 mg PO Q12 [facility] Last Admin: 03/02/18 11:34 Dose: 100 mg [id number] Ethyl Esters (Lovaza) 1 gm PO Q12 [facility] Last Admin: 03/02/18 13:21 Dose: 1 gm Polymyxin/Trimethoprim Sulfate (Polytrim Ophth Soln) 1 drop OD Q8H [facility] Last Admin: 03/02/18 16:33 Dose: 1 drop Prednisolone Acetate (Pred Forte 1% Opht Susp) 1 drop OD Q8H [facility] Last Admin: 03/02/18 16:33 Dose: 1 drop Tramadol HCl (Ultram) 50 mg PO Q12 PRN PRN Reason: Pain, severe (8-10) - Labs Labs: 03/01/18 11:50 03/01/18 11:50 PT 10.4 Seconds (9.8-13.1) 03/01/18 11:50 INR 0.9 (0.9-1.2) 03/01/18 11:50 APTT 37.7 Seconds (25.6-37.1) H 03/01/18 11:50 - Constitutional Appears: Non-toxic - Head Exam Head Exam: NORMAL INSPECTION - Eye Exam Eye Exam: Normal appearance - ENT Exam ENT Exam: Mucous Membranes Moist - Neck Exam Neck Exam: Full ROM - Respiratory Exam Respiratory Exam: NORMAL BREATHING PATTERN - Cardiovascular Exam Cardiovascular Exam: REGULAR RHYTHM - GI/Abdominal Exam GI & Abdominal Exam: Normal Bowel Sounds - Rectal Exam Rectal Exam: Deferred - Extremities Exam Extremities Exam: absent: Pedal Edema - Back Exam Back Exam: NORMAL INSPECTION - Neurological Exam Neurological Exam: Alert - Psychiatric Exam Psychiatric exam: Normal Affect - Skin Skin Exam: Normal Color Assessment and Plan (1) Chest pain Assessment & Plan: I reviewed the stress test with the patient. There is no evidence of myocardial ischemia. Left ventricular function is normal. I recommend medical therapy and blood pressure control. stable for discharge Status: Acute (2) Hypertension Status: Chronic (3) Non-insulin dependent type 2 diabetes mellitus Status: Chronic
--- NOTE | 2018-03-03 12:41 | CARD ---
APPROVED REPORT Protocol: LEXISCAN Test Type: Stress Nuclear Medications: Lopressor 100mg, Eliquis 5mg, Prednisolone Acetat eye drops, Lipitor 20 mg, Vitamin B12, Glipizide 5mg, Ergocalciferol, Synthroid 200mcg, Lisinopril 40mg, Ativan 1mg Medical History: Hypothroidism, Hypertension, Hypercholesteremia, Diabetes, TIA, Blood Clot in eye, Eye Surgery, Cholecystectomy Target HR: 162 bpm Resting ECG: NSR nonspecific stt changes Resting Heart Rate: 75 bpm Resting Blood Pressure: 161/81mmHg submaximum (85%): 138 bpm TEST SUMMARY PREINJECTPRE-INJEC00:[id number]. [id number]. INJECTIONNS FLUSH00:[id number]/81.0. INJECTIONNUC MED00:[id number]. [id number]. PROCEDURE Pharmacologic stress testing was performed using 0.4mg per 5ml of regadenoson given intravenously over 7-10 seconds. POST EXERCISE Reason for Termination: PROTOCOL COMPLETE Target HR: No Max HR: 106 bpm 66% of Maximum Predicted HR: 162 bpm Exercise duration: 01:00 min:sec, 0 Stage Exercise capacity: 1.0METs Max Blood Pressure: 166/73mmHg Blood Pressure response to exercise: resting hypertension - appropriate response Heart Rate response to exercise: appropriate Chest Pain: No, none Angina index: 0 Arrhythmia: No, none ST Change: No, none Deviation: 0 mm Stress EKG Interpretation The patient underwent myocardial perfusion imaging as per aforementioned Lexiscan protocol. 66% of MPHR max HR 106 bpm. No chest pain reported Normal HR and BP response to vasodilator stress No arrythmias Normal Sinus Rhythm at baseline with nonspecific st-t changes at rest/ Sinus tachycardia nonspecific st-t changes with Lexiscan nondiagnostic for ischemia EXAM: Myocardial Perfusion REST/STRESS Image QualityGOOD Imaging Protocol The imaging protocol used to acquire images was Rest Tc-99m/stress Tc-99m 1 day Rest Spect myocardial perfusion imaging was performed in supine position 30 minutes following the injection of 10 mCi of Tc-99 Myoview. Time of rest injection: 8:09 Time of rest imagin:05 At peak stress, the patient was injected intravenously with 30mCi of Tc-99 tetrofosmin after an infusion time of minutes and seconds. Time of stress injection: 10:36 Time of stress imagin:30 Gated Stress Spect was performed 60 minutes after intravenous Tc-99 Myoview injection. The images were gated to evaluate regional wall motion and calculate ventricular ejection fraction. NUCLEAR IMAGE INTERPRETATION The rest and stress images show normal perfusion, normal contraction and thickening. LV Perfusion 1 The rest and stress images show normal perfusion. CONCLUSION 1. No Vasodilator stress induced ischemia. Normal perfusion both with rest and stress 2. Normal Gated LVEF 61% with normal perfusion,contractility and thickening 3. Nondiagnostic EKG response with vasodilator stress
[2018-03-07] MEDS ORDERED: Ergocalciferol 50,000 Intl Units Cap PO SCH (22:54)
== END 2018-03-02 19:00 | disposition home or self-care (01) ==
LOC: H.ER 11:40 → H.ERHOLD 14:21 → H.TEL 20:58
PROVIDERS: ADMIT Family Medicine; ATTEND Family Medicine
DX: R07.9 Chest pain, unspecified (principal); E11.9 Type 2 diabetes mellitus without complications; I10 Essential (primary) hypertension; E78.00 Pure hypercholesterolemia, unspecified; Z86.73 Personal history of transient ischemic attack (TIA), and cerebral infarction without residual deficits; E03.9 Hypothyroidism, unspecified; Z90.49 Acquired absence of other specified parts of digestive tract; Z79.01 Long term (current) use of anticoagulants; H40.9 Unspecified glaucoma
CPT/HCPCS: 36415; 71045; 71275; 78452; 80053; 82948; 84484; 85025; 85610; 85730; 93005; 93017; 99285; A9502; G0378; J2785; Q9967

== ENCOUNTER 2018-06-02 09:52 | Emergency (ER) | payer OTHER ==
[2018-06-02 10:00] VITALS: BP 150/71; PULSE 72; RESP 26; TEMP 97.6; O2SAT 98
[2018-06-02] MEDS ORDERED: Lidocaine 1% Inj (20ml) ONE (10:50)
[2018-06-02] MEDS ORDERED: Tmp-Smz 800 mg-160 mg DS Tab PO STA (10:56)
[2018-06-02] MEDS ORDERED: Lidocaine 1% Inj (20ml) IJ STA (10:56)
[2018-06-02] MEDS ORDERED: Tdap Vaccine 0.5 ml Vial (10-64 yrs) IM ONE ×2 (11:04→11:36)
[2018-06-02] MEDS ORDERED: Tmp-Smz 800 mg-160 mg DS Tab ONE (11:37)
--- NOTE | 2018-06-02 11:58 | ED PDOC ---
HPI: Skin/Bite Injury Time Seen by Provider: 06/02/18 10:38 Chief Complaint (Nursing): Abnormal Skin Integrity Chief Complaint (Provider): Abscess History Per: Patient History/Exam Limitations: no limitations Onset/Duration Of Symptoms: Days (x1 week) Current Symptoms Are (Timing): Still Present Location Of Injury: Left: Arm (upper) Quality Of Symptoms: Painful, Swollen, Other (redness) Pain Scale Rating Of: 8 Additional Complaint(s): Eileen Florian is a 58 year old female, with a past medical history of diabetes , ocular retinopathy, stroke and multiple blood clots, who presents to the emergency department for evaluation of left upper arm pain onset for x1 week associated with swelling and redness. Patient states pain is 8/10 localized and didn't take any medications [employer]. She has a history of abscesses. Patient is diabetic and states sugar normally runs in the 130s. Of note she is currently on Eliquis. She denies any fever, chills, falls or trauma. No further medical complaints. PMD: Attila Enriquez Past Medical History Reviewed: Historical Data, Nursing Documentation, Vital Signs Vital Signs: Last Vital Signs Temp 97.6 F 06/02/18 10:00 Pulse 72 06/02/18 10:00 Resp 26 H 06/02/18 10:00 BP 150/71 06/02/18 10:00 Pulse Ox 98 06/05/18 15:14 - Medical History PMH: Diabetes, HTN, Hypercholesterolemia, Hypothyroidism, TIA Other PMH: Ocular retinopathy, Blood clot - Surgical History Surgical History: Cholecystectomy, (x1) Other surgeries: back surgery - Family History Family History: States: Diabetes, Hypertension - Living Arrangements Living Arrangements: With Family - Social History Current smoker - smoking cessation education provided: No Alcohol: None Drugs: Denies - Immunization History Hx Tetanus Toxoid Vaccination: No (cannot recall) - Home Medications Home Medications: Ambulatory Orders Medication Instructions Recorded Canagliflozin/Metformin HCl 1 tab PO BID 08/03/17 [Invokamet 150-1,000 mg Tablet] Ergocalciferol (Vitamin D2) 50,000 unit PO MO 08/03/17 [Vitamin D2] Glipizide [Glipizide ER] 5 mg PO BID 08/03/17 Lisinopril [Zestril] 40 mg PO DAILY 08/03/17 Metoprolol Tartrate [Lopressor] 100 mg PO Q12 08/03/17 Apixaban [Eliquis] 5 mg PO Q12 03/01/18 Atorvastatin [Lipitor] 20 mg PO DAILY 03/01/18 Cyanocobalamin [Vitamin B12 100 250 mcg PO DAILY 03/01/18 mcg Tab] Icosapent Ethyl [Vascepa] 1 gm PO Q12 03/01/18 LORazepam [Ativan] 1 mg PO HS PRN 03/01/18 Levothyroxine [Synthroid] 200 mcg PO DAILY 03/01/18 Liraglutide [Victoza 2-Humberto] 1.8 mg SC DAILY 03/01/18 Polymyxin/Trimethoprim Sulfate 1 drop RIGHTEYE Q8 03/01/18 [Polytrim Ophth Soln] PrednisoLONE 1% [Pred Forte 1% 1 drop RIGHTEYE Q8 03/01/18 Opht Susp] traMADol [Ultram] 50 mg PO Q12 PRN 03/01/18 Acetaminophen [Acetaminophen 8 650 mg PO Q8 #21 tablet.er 06/02/18 Hour] Cephalexin [Keflex] 500 mg PO TID #21 capsule 06/02/18 Sulfamethoxazole/Trimethoprim 1 tab PO BID #14 tab 06/02/18 [Bactrim DS 800 mg-160 mg] - Allergies Allergies/Adverse Reactions: Allergies Allergy/AdvReac Type Severity Reaction Status Date / Time No Known Allergies Allergy Verified 03/01/18 11:54 Review of Systems ROS Statement: Except As Marked, All Systems Reviewed And Found Negative Constitutional: Negative for: Fever, Chills Musculoskeletal: Positive for: Arm Pain (left upper arm) Physical Exam - Reviewed Nursing Documentation Reviewed: Yes Vital Signs Reviewed: Yes - Physical Exam Comments: GENERAL APPEARANCE: Patient is awake, alert, oriented x 3, no acute distress. Neck: Supple ENT: Mucus membranes moist. Airway patent, (-) stridor. Skin: warm and dry, (+)2.5cm x 2cm erythematous, fluctuant abscess to the lateral aspect of the proximal left upper arm with no surrounding erythema or cellulitis, no active drainage (+) tenderness (-) warmth. Pulmonary: Lungs clear to auscultation bilaterally, no rhonchi, no wheezing, no rales. Cardiac: regular rate and rhythm Abdomen: Soft, nontender, nondistended (-) guarding. Extremities: FROM of bilateral upper extremities. Sensation and cap refill intact. (-) distal NV deficit (+) distal pulses Neuro: Mental status as above. (-) focal deficit (-) facial asymmetry. Gait steady, speech clear. - ECG O2 Sat by Pulse Oximetry: 98 (RA) Pulse Ox Interpretation: Normal Medical Decision Making Medical Decision Making: Time: 10:38 Initial Impression: abscess of upper extremity Initial Plan: --Adacel 0.5 ml IM --Bactrim DS tab 1 tab PO --Keflex 500 mg PO --Lidocaine 1% 2ml IJ for I&D --Wound culture and gram stain --Reevaluation Fingerstick: 138 I&D performed by Rabia MCCORD. See procedure note. Wound dressing applied. Patient educated on wound care and advised packing removal and wound check in 48 hours with PMD. Wound culture pending. 11:54 On re-evaluation, patient reports improvement of symptoms. On exam, patient remains AAOx3, in no acute distress. Lungs clear to auscultation, cardiac RRR, repeat neuro exam shows no focal findings. VSS, stable for discharge. Lab/Diagnostic results d/w the patient in great detail. Diagnosis of abscess of left upper extremity d/w the patient. Based on history, exam and diagnostic results, plan will be for outpatient follow up with PMD. Patient instructed to follow-up with pmd / referral provided / the clinic in 1- 2 days without fail. Advised to take medication as prescribed. Return to the emergency room at any time for any new or worsening symptoms. Patient states she fully agrees with and understands discharge instructions. States that she agrees with the plan and disposition. Verbalized and repeated discharge instructions and plan. I have given the patient opportunity to ask any additional questions. ----- Scribe Attestation: Documented by Marcos Donahue, acting as a scribe for Zeina K Rabia, PA-C. Provider Scribe Attestation: All medical record entries made by the Scribe were at my direction and personally dictated by me. I have reviewed the chart and agree that the record accurately reflects my personal performance of the history, physical exam, medical decision making, and the department course for this patient. I have also personally directed, reviewed, and agree with the discharge instructions and disposition. Disposition - Clinical Impression Clinical Impression: Abscess, Upper arm pain - Patient ED Disposition Is Patient to be Admitted: No Counseled Patient/Family Regarding: Diagnosis, Need For Followup, Rx Given - Disposition Referrals: Attila Enriquez MD [Staff Provider] - Disposition: Routine/Home Disposition Time: 11:54 Condition: STABLE Additional Instructions: FOLLOW UP WITH PMD IN 48 HOURS FOR WOUND CHECK AND PACKING REMOVAL. KEEP WOUND CLEAN AND DRY. TAKE ANTIBIOTICS UNTIL COMPLETE. RETURN TO ED WITH ANY NEW OR WORSENING SYMPTOMS. Prescriptions: Acetaminophen [Acetaminophen 8 Hour] 650 mg PO Q8 #21 tablet.er Cephalexin [Keflex] 500 mg PO TID #21 capsule Sulfamethoxazole/Trimethoprim [Bactrim DS 800 mg-160 mg] 1 tab PO BID #14 tab Instructions: Skin Abscess, Abscess Incision and Drainage, Wound Care, Wound Incision and Drainage Forms: [employer] (Welsh) Print Language: SWAZI - POA Present On Arrival: None Procedures - Incision and Drainage Site: Lateral aspect of L upper arm Blade Size: 11 I & D Procedure: betadine prep, sterile dressing applied Progress: Area was numbed with 1.mL of Lidocaine 1% with adequate anesthesia. 1cm incision made with 11 blade produced purulent drainage. 1/4 inch packing placed. Patient tolerated procedure well.
== END 2018-06-02 12:33 | disposition home or self-care (01) ==
LOC: H.ER 09:52
DX: L02.414 Cutaneous abscess of left upper limb (principal); E11.319 Type 2 diabetes mellitus with unspecified diabetic retinopathy without macular edema; E03.9 Hypothyroidism, unspecified; E78.00 Pure hypercholesterolemia, unspecified; Z79.01 Long term (current) use of anticoagulants; Z79.84 Long term (current) use of oral hypoglycemic drugs; Z86.73 Personal history of transient ischemic attack (TIA), and cerebral infarction without residual deficits; I10 Essential (primary) hypertension